=== PATIENT | female | born 1940 | race Caucasian/White ===

== ENCOUNTER 2017-01-20 10:03 | Inpatient (IN) | payer OTHER ==
[~2017-01-20] VITALS: Ht 162.6 cm; Wt 52.6 kg
[2017-01-20] MEDS ORDERED: SODIUM CHLORIDE 0.9% 1000ML 1,000 ML IV SCH (10:26)
--- NOTE | 2017-01-20 10:45 | DIAGNOSTIC IMAGING REPORT ---
HEAD CT NONCONTRAST CT DOSE: 967.47 mGy.cm HISTORY: Mental status change Stroke TECHNIQUE: Multiaxial CT images of the head were performed without the use of intravenous contrast. Comparison: None. Findings: The paranasal sinuses and mastoid air cells are clear. The calvarium and skull base are intact. The ventricles and sulci are within normal limits. There is no mass, hematoma, midline shift, or acute infarct. Impression: No acute intracranial abnormality. Electronically signed by: César Goldman M.D. 01/20/2017 10:44 AM Dictated Date/Time: 01/20/2017 10:41 AM
--- NOTE | 2017-01-20 10:53 | DIAGNOSTIC IMAGING REPORT ---
CHEST ONE VIEW PORTABLE CLINICAL HISTORY: Stroke. Slurred speech. COMPARISON STUDY: Chest radiograph April 05, 2015. FINDINGS: Lung volumes are normal. Lungs are clear. There is no pneumothorax or pleural effusion. Cardiac size is normal. Mediastinal contours are normal. There is no evidence of pulmonary edema. 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 IMPRESSION: No acute cardiopulmonary findings. Electronically signed by: Lalit Philip M.D. 01/20/2017 10:52 AM Dictated Date/Time: 01/20/2017 10:49 AM
[2017-01-20 11:19] LABS: BASO % 0.4 %; BASO ABS # 0.04 K/uL (0-0.2); COMPLETE YES; EOS % 3.8 %; HEMATOCRIT 43.1 % (37-47); IG% 0.2 %; LYMPH % 8.5 %; MEAN CELL VOLUME 88.1 fL (80-100); MEAN CORPUSCULAR HEMOGLOBIN 30.9 pg (25-34); MEAN PLATELET VOLUME 9.2 fL (7.4-10.4); NEUT % 81.1 %; PLATELET COUNT 216 K/uL (130-400); RED BLOOD COUNT 4.89 M/uL (4.2-5.4); WHITE BLOOD COUNT 10.56 K/uL (4.8-10.8)
[2017-01-20] MEDS ORDERED: ALPR-411 PO ×2 (11:19→11:21)
[2017-01-20 11:26] LABS: BLOOD UREA NITROGEN 13 mg/dl (7-18); BUN/CREATININE RATIO 15.4 (10-20); CALCIUM 9.1 mg/dl (8.5-10.1); CARBON DIOXIDE 28 mmol/L (21-32); CHLORIDE 104 mmol/L (98-107); CREATININE 0.87 mg/dl (0.60-1.20); GLUCOSE 110 mg/dl (70-99); POTASSIUM 3.8 mmol/L (3.5-5.1); SODIUM 138 mmol/L (136-145)
[2017-01-20] MEDS ORDERED: SIMV40TA2 PO (11:27)
[2017-01-20 11:28] LABS: PROTHROMBIN TIME (PATIENT) 10.3 SECONDS (9.0-12.0)
[2017-01-20 11:31] LABS: CKMB/CK RATIO 1.7 (0-3.0)
[2017-01-20] MEDS ORDERED: LORAZEPAM 2 MG/ML 1 ML VIAL IV PRN (12:45)
[2017-01-20] MEDS ORDERED: ONDANSETRON INJ 2 MG/ML 2 ML VIAL IV PRN (12:45)
[2017-01-20] MEDS ORDERED: ACETAMINOPHEN 325 MG TAB PO PRN (12:45)
[2017-01-20] MEDS ORDERED: POLYETHYLENE (MIRALAX) 17 GM PACK PO PRN (12:45)
[2017-01-20] MEDS ORDERED: ALUMINUM/MAGNESIUM/SIMETH (MAALOX MAX) 30 ML UDC PO PRN (12:45)
[2017-01-20] MEDS ORDERED: MAGNESIUM HYDROXIDE SUSP 30 ML UDC PO PRN (12:45)
--- NOTE | 2017-01-20 14:06 | History and Physical ---
History & Physical Date & Time of Service: Jan 20, 2017 at 13:47 Chief Complaint: Stroke Symptons, Slurred Speech, Uncontrolled Move Primary Care Physician: Chasity Allen D.O. History of Present Illness Source: patient, family, clinic records This is a 76 year old female with PMH of HTN, HLD, and a long-standing history of choreiform movements - presented with slurred speech and worsening jerking movements of the arms and legs. She has been following with Dr. Zeng, neurology, as an outpatient due to these movements; she had multiple imaging tests and diagnostic tests, including ruling out Lamoure's chorea; as per neurology, this is more of a senile choreiform movement; patient was seen by primary care physician, Dr. Chasity Allen yesterday in the office and had an MRI done yesterday - showing volume loss in the parietal lobes - which is a chronic issue. Patient was seen today and brought in by nephew due to slurring of speech and worsening choreiform movements. When I went to exam the patient, slurring of speech has resolved; but the movements persist. She denies any pain, no other symptoms to note. Past Medical/Surgical History Medical Problems: (1) Cataract Status: Resolved Family History Patient reports no known family medical history. Social History Smoking Status: Never Smoker Multi-Drug Resistant Organisms History of MDRO: No Allergies Coded Allergies: No Known Allergies (Unverified , 01/20/17) Home Medications Scheduled Simvastatin (Zocor), 40 MG PO QPM Scheduled PRN Alprazolam (Xanax), 0.5 MG PO TID PRN for Anxiety Alprazolam (Xanax), 0.25 MG PO TID PRN for Anxiety Review of Systems Constitutional: No chills, No fever Respiratory: No cough, No dyspnea at rest, No dyspnea on exertion, No hemoptysis, No shortness of breath, No sputum, No wheezing Cardiovascular: No chest pain, No edema, No orthopnea, No palpitations Abdomen: No GI bleeding, No constipation, No diarrhea, No nausea, No pain, No vomiting Musculoskeletal: No joint pain, No muscle pain Genitourinary - Female: No dysuria, No hematuria, No urinary frequency, No urinary incontinence, No urinary retention, No urinary urgency Neurologic: + problem reported (jerking involuntary movements), No balance problems, No memory loss, No numbness/tingling, No paralysis, No vertigo, No weakness Psychiatric: + anxiety, No anhedonism, No depression symptoms, No insomnia, No substance abuse Hematologic / Lymphatic: No abnormal bleeding/bruising Integumentary: No itch, No rash Allergic / Immunologic: No environmental allergies, No food allergies, No seasonal allergies Physical Exam Vital Signs Date Time Temp Pulse Resp B/P Pulse Ox O2 Delivery O2 Flow Rate FiO2 01/20/17 13:18 96 18 119/99 95 Room Air 01/20/17 11:48 93 18 134/57 98 Room Air 01/20/17 10:51 89 01/20/17 10:45 91 20 128/43 95 Room Air 01/20/17 10:18 95 Room Air 01/20/17 10:08 37.2 102 20 153/116 97 Room Air General Appearance: + mild distress (+anxious) Head: normocephalic, atraumatic Eyes: normal inspection ENT: hearing grossly normal Neck: supple Respiratory/Chest: chest non-tender, lungs clear, normal breath sounds, no respiratory distress, no accessory muscle use Cardiovascular: regular rate, rhythm, no edema, no murmur Abdomen/GI: normal bowel sounds, non tender, soft Back: normal inspection Extremities/Musculoskelatal: normal inspection, no calf tenderness, normal capillary refill, no pedal edema, normal range of motion Neurologic/Psych: alert, oriented x 3, + pertinent finding (involuntary jerking of both upper and lower extremities - anxious affect) Skin: normal color Lymphatic: no adenopathy Diagnostics Laboratory Results Results Past 24 Hours Test 01/20/17 10:17 01/20/17 10:40 01/20/17 10:51 Range/Units White Blood Count 10.56 4.8-10.8 K/uL Red Blood Count 4.89 4.2-5.4 M/uL Hemoglobin 15.1 12.0-16.0 g/dL Hematocrit 43.1 37-47 % Mean Corpuscular Volume 88.1 80-100 fL Mean Corpuscular Hemoglobin 30.9 25-34 pg Mean Corpuscular Hemoglobin Concent 35.0 32-36 g/dl Platelet Count 216 130-400 K/uL Mean Platelet Volume 9.2 7.4-10.4 fL Neutrophils (%) (Auto) 81.1 % Lymphocytes (%) (Auto) 8.5 % Monocytes (%) (Auto) 6.0 % Eosinophils (%) (Auto) 3.8 % Basophils (%) (Auto) 0.4 % Neutrophils # (Auto) 8.57 1.4-6.5 K/uL Lymphocytes # (Auto) 0.90 1.2-3.4 K/uL Monocytes # (Auto) 0.63 0.11-0.59 K/uL Eosinophils # (Auto) 0.40 0-0.5 K/uL Basophils # (Auto) 0.04 0-0.2 K/uL RDW Standard Deviation 41.0 36.4-46.3 fL RDW Coefficient of Variation 12.8 11.5-14.5 % Immature Granulocyte % (Auto) 0.2 % Immature Granulocyte # (Auto) 0.02 0.00-0.02 K/uL Prothrombin Time 10.3 9.0-12.0 SECONDS Prothromb Time International Ratio 1.0 0.9-1.1 Activated Partial Thromboplast Time 26.1 21.0-31.0 SECONDS Partial Thromboplastin Ratio 1.0 Sodium Level 138 136-145 mmol/L Potassium Level 3.8 3.5-5.1 mmol/L Chloride Level 104 98-107 mmol/L Carbon Dioxide Level 28 21-32 mmol/L Anion Gap 6.0 3-11 mmol/L Blood Urea Nitrogen 13 7-18 mg/dl Creatinine 0.87 0.60-1.20 mg/dl Est Creatinine Clear Calc Drug Dose 46.9 ml/min Estimated GFR () 75.0 Estimated GFR (Non- 64.7 BUN/Creatinine Ratio 15.4 10-20 Random Glucose 110 70-99 mg/dl Calcium Level 9.1 8.5-10.1 mg/dl Total Creatine Kinase 75 26-192 U/L Creatine Kinase MB 1.3 0.5-3.6 ng/ml Creatine Kinase MB Ratio 1.7 0-3.0 Troponin I < 0.015 0-0.045 ng/ml Thyroid Stimulating Hormone (TSH) 0.965 0.300-4.500 uIu/ml Ethyl Alcohol mg/dL < 3.0 0-3 mg/dl Bedside Glucose 90 70-90 mg/dl Diagnostic Radiology HEAD CT NONCONTRAST CT DOSE: 967.47 mGy.cm HISTORY: Mental status change Stroke TECHNIQUE: Multiaxial CT images of the head were performed without the use of intravenous contrast. Comparison: None. Findings: The paranasal sinuses and mastoid air cells are clear. The calvarium and skull base are intact. The ventricles and sulci are within normal limits. There is no mass, hematoma, midline shift, or acute infarct. Impression: No acute intracranial abnormality. CXR normal Normal EKG Impression Assessment and Plan This is a 76 year old female with PMH of HTN, HLD, and a long-standing history of choreiform movements presented with stroke like symptoms Stroke-Like Symptoms as per family members, she had been slurring her speech worsening choreiform movements Head CT negative had an MRI on 01/19 with chronic volume loss at bilateral parietal lobes seen due to slurring of speech, will check MRI/MRA of head/neck again check TSH Ativan PRN consult neurology for further input HTN monitor BP she is now off of triamterene-HCTZ HLD continue statin DVT ppx Lovenox FULL CODE VTE Prophylaxis VTE Risk Assessment Done? Y/N: Yes Risk Level: Moderate
--- NOTE | 2017-01-20 14:30 | DIAGNOSTIC IMAGING REPORT ---
MRI OF THE BRAIN WITHOUT AND WITH IV CONTRAST CLINICAL HISTORY: stroke like symptoms mental status change COMPARISON STUDY: No previous studies for comparison. TECHNIQUE: Utilizing a 1.5 Amanda magnet and dedicated coil, multiplanar, multiecho imaging of the brain was performed pre and postcontrast administration. IV administration of 10 mL of Gadavist contrast was uneventful. FINDINGS: Diffusion-weighted images show no evidence for an acute ischemic insult. Findings of mild generalized cerebellar as well as cerebral atrophy. Moderate chronic small vessel change. No abnormal postcontrast enhancement. Sella and parasellar region as well as internal artery canals appear unremarkable. IMPRESSION: Age-related atrophy and chronic small vessel change. No acute process. Electronically signed by: César Goldman M.D. 01/20/2017 2:29 PM Dictated Date/Time: 01/20/2017 2:25 PM
--- NOTE | 2017-01-20 14:31 | DIAGNOSTIC IMAGING REPORT ---
MR ANGIOGRAM OF THE BRAIN CLINICAL HISTORY: Strokelike symptoms. Slurred speech. COMPARISON STUDY: MRI of the brain performed concurrently on 01/20/2017. TECHNIQUE: 3-D [id number] MR angiography of the intracranial circulation is performed. 3-D tumble views are created and assessed. IV contrast was not administered for this examination. FINDINGS: There is origin of the right posterior cerebral artery. The internal carotid arteries are widely patent bilaterally, as are the anterior and middle cerebral arteries. The vertebrobasilar system and posterior cerebral arteries are widely patent. The right vertebral artery is dominant. There is no aneurysm, high-grade stenosis, or focal vessel cutoff seen throughout the intracranial circulation. The brain parenchyma is normal as visualized noting age-related involutional change. IMPRESSION: Unremarkable MR angiogram of the brain. Electronically signed by: Rickie Rajput M.D. 01/20/2017 2:30 PM Dictated Date/Time: 01/20/2017 2:28 PM
[2017-01-20 14:40] VITALS: BP 113/69; PULSE 98; TEMP 37.4; O2SAT 98; Ht 162.6 cm; Wt 52.6 kg
[2017-01-20] MEDS ORDERED: LORAZEPAM INJ 0.5 MG in SYRINGE 0.75 ML IV PRN (15:15)
[2017-01-20 15:30] VITALS: BP 121/55; PULSE 93; TEMP 37.3; O2SAT 94
--- NOTE | 2017-01-20 17:00 | Neurology Consultation ---
Neurology Consultation Date of Consultation: Jan 20, 2017. Attending Physician: Brian Keane MD Primary Care Physician: Chasity Allen D.O. Reason for Consultation: MS change History of Present Illness Source: patient, family Day is a 76 year old female with PMH of HTN, HLD, history of choreiform movements - presented with slurred speech and worsening jerking movements of the arms and legs which has gotten worse over the past 3 weeks. She is a patient of Dr. Zeng, neurology, genetic testing r/o Gregory's chorea; Dr. 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 According to family she has been well all her life and no real chronic issues. She was recently given Xanax for anxiety. She does drink 1 glass of wine per night which does relax her in the evening. She does not move at night but does get up at night and goes to the couch not to bother her . No history of illness or head trauma. denies CP, SOB, abdominal pain, swallowing issues, N, V, bowel or bladder issues. Social History Smoking Status: Never smoker Alcohol Use: occasionally Allergies Coded Allergies: No Known Allergies (Unverified , 01/20/17) Current Inpatient Medications Current Inpatient Medications Medications (Trade) Dose Ordered Sig/Katia Route Start Time Stop Time Status Last Admin Dose Admin Enoxaparin Sodium 40 mg 40 mg Q24H SC 01/20/17 16:00 02/19/17 15:59 Sodium Chloride (Nss 1000ml) 1,000 ml @ 80 mls/hr [id number] IV 01/20/17 12:39 02/19/17 12:38 Acetaminophen (Tylenol Tab) 650 mg Q4H PRN PO 01/20/17 12:45 02/19/17 12:44 Al Hydrox/Mg Hydrox/Simethicone (Maalox Max Susp) 15 ml Q4H PRN PO 01/20/17 12:45 02/19/17 12:44 Magnesium Hydroxide (Milk Of Magnesia Susp) 30 ml Q12H PRN PO 01/20/17 12:45 02/19/17 12:44 Ondansetron HCl (Zofran Inj) 4 mg Q6H PRN IV 01/20/17 12:45 02/19/17 12:44 Polyethylene (Miralax Powder Packet) 17 gm DAILY PRN PO 01/20/17 12:45 02/19/17 12:44 Simvastatin (Zocor Tab) 40 mg QPM PO 01/20/17 21:00 02/19/17 20:59 Lorazepam 0.5 mg 0.5 mg Q4 PRN IV 01/20/17 12:45 02/19/17 12:44 Lorazepam/Syringe (Ativan Inj/ Syringe) 1 ml @ 1 mls/min Q4H PRN IV 01/20/17 15:15 02/19/17 15:14 Physical Exam Vital Signs (Past 24 Hrs): Date Time Temp Pulse Resp B/P Pulse Ox O2 Delivery O2 Flow Rate FiO2 01/20/17 15:30 37.3 93 18 121/55 94 Room Air 01/20/17 14:40 37.4 98 16 113/69 98 Room Air 01/20/17 13:18 96 18 119/99 95 Room Air 01/20/17 11:48 93 18 134/57 98 Room Air 01/20/17 10:51 89 01/20/17 10:45 91 20 128/43 95 Room Air 01/20/17 10:18 95 Room Air 01/20/17 10:08 37.2 102 20 153/116 97 Room Air Physical Exam: Constitutional: appearance nourished, thin Ears, Nose, Mouth and Throat: mucous membranes moist, no injection and skin normal, eyes normal Cardiovascular: normal S-1 and S-2 and regular rate and rhythm Respiratory: clear to auscultation (CTA) and no rales, rhonchi or wheeze Musculoskeletal: no peripheral edema and good distal pulses Skin: no stigmata of neurocutaneous disease noted and normal and intact Eyes: extraocular muscles intact (EOMI) and pupils equal, round and reactive to light (PERRL) NEUROLOGIC EXAMINATION: Mental status: Alert and interactive Oriented to full date and location Oriented to person Speech fluent with no evidence of aphasia Cranial Nerves smile and eye brow raise symmetric, tongue midline Reflexes: Deep tendon reflexes were symmetrical and graded 2/5. Plantar responses were flexor. Sensory: no deficit to vibration, cool touch, GT proprioception in tact bilaterally Coordination: finger to nose without bi pass Gait/Stance: stands with minimal assistance Motor: continuing chorea movements of arms legs and head, stops with concentration on hand assistant director of financial aid or lifting leg Strength: biceps triceps hand assistant director of financial aid 5/5 bilaterally, hip flex ext plantar flex ext bilaterally 5/5 Laboratory Results Past 24 Hours: 01/20/17 10:17 Red Blood Count 4.89, Mean Corpuscular Volume 88.1, Mean Corpuscular Hemoglobin 30.9, Mean Corpuscular Hemoglobin Concent 35.0, Mean Platelet Volume 9.2, Neutrophils (%) (Auto) 81.1, Lymphocytes (%) (Auto) 8.5, Monocytes (%) (Auto) 6.0, Eosinophils (%) (Auto) 3.8, Basophils (%) (Auto) 0.4, Neutrophils # (Auto) 8.57, Lymphocytes # (Auto) 0.90, Monocytes # (Auto) 0.63, Eosinophils # (Auto) 0.40, Basophils # (Auto) 0.04 01/20/17 10:17 Test 01/20/17 10:17 01/20/17 10:40 01/20/17 10:51 White Blood Count 10.56 K/uL (4.8-10.8) Red Blood Count 4.89 M/uL (4.2-5.4) Hemoglobin 15.1 g/dL (12.0-16.0) Hematocrit 43.1 % (37-47) Mean Corpuscular Volume 88.1 fL (80-100) Mean Corpuscular Hemoglobin 30.9 pg (25-34) Mean Corpuscular Hemoglobin Concent 35.0 g/dl (32-36) Platelet Count 216 K/uL (130-400) Mean Platelet Volume 9.2 fL (7.4-10.4) Neutrophils (%) (Auto) 81.1 % Lymphocytes (%) (Auto) 8.5 % Monocytes (%) (Auto) 6.0 % Eosinophils (%) (Auto) 3.8 % Basophils (%) (Auto) 0.4 % Neutrophils # (Auto) 8.57 K/uL (1.4-6.5) Lymphocytes # (Auto) 0.90 K/uL (1.2-3.4) Monocytes # (Auto) 0.63 K/uL (0.11-0.59) Eosinophils # (Auto) 0.40 K/uL (0-0.5) Basophils # (Auto) 0.04 K/uL (0-0.2) RDW Standard Deviation 41.0 fL (36.4-46.3) RDW Coefficient of Variation 12.8 % (11.5-14.5) Immature Granulocyte % (Auto) 0.2 % Immature Granulocyte # (Auto) 0.02 K/uL (0.00-0.02) Prothrombin Time 10.3 SECONDS (9.0-12.0) Prothromb Time International Ratio 1.0 (0.9-1.1) Activated Partial Thromboplast Time 26.1 SECONDS (21.0-31.0) Partial Thromboplastin Ratio 1.0 Anion Gap 6.0 mmol/L (3-11) Est Creatinine Clear Calc Drug Dose 46.9 ml/min Estimated GFR () 75.0 Estimated GFR (Non- 64.7 BUN/Creatinine Ratio 15.4 (10-20) Calcium Level 9.1 mg/dl (8.5-10.1) Total Creatine Kinase 75 U/L (26-192) Creatine Kinase MB 1.3 ng/ml (0.5-3.6) Creatine Kinase MB Ratio 1.7 (0-3.0) Troponin I < 0.015 ng/ml (0-0.045) Thyroid Stimulating Hormone (TSH) 0.965 uIu/ml (0.300-4.500) Ethyl Alcohol mg/dL < 3.0 mg/dl (0-3) Bedside Glucose 90 mg/dl (70-90) Imaging MRI brain with and without brain- Age-related atrophy and chronic small vessel change. No acute process. MRA brain- Unremarkable MR angiogram of the brain CXR-No acute cardiopulmonary findings Impression 76 year old female with known history of chorea movements Plan 1. gregory chorea was ruled out with genetic testing 2. no acute findings on MRI 3. patients family would like to have her seen at [facility]- paperwork in room-as out patient 4. causes of chorea movements- query systemic lupus, infection, Sydenham's chorea child serrato disease, medications, neuroleptics, age related chorea, metabolic abnormalities 5. according to family patient has been healthy all her life 6. further recommendations to follow I have seen and discussed above patient with Dr Jyoti Oshea Pt seen and examined. Apparently pt had some abnl movement of one arm as a child. No hx of RF or known syndenhams. Pt/family deny prior tics.Genetic testing for [place]'s negative. No neuroleptic use. Gait has declined, family denies any cofnificFamily brought pt in they felt speech was dysarthric and increased L chorea. MRI yesterday and today are unchanged and do not show any diffusion weighted abnl. CT head bl basal ganglia calcification. Exam notable for modest generalized chorea . There is some keira buccal grimacing. No resting tremor or cogwheelin.Sadfsccades are slow, no facial asymmetry, speech mildly dysarthric cw oraobuccal mvmts. gag mildly depressed bl. Strength symm, reflexes mildly brisk nonpathologic. FNF, HS is nondystaxic. Gait is unsteady wide based, almost an exaggerated steppage. Imp chorea. Will check for treatable etiologies. Given wt loss consider paraneoplastic. CT chest, abd pelvis, anti HU cv2/crmp5. CHANG pending, heavy metals, copper level, ceruloplasmin B12, pth, ferritin . Re tx could consider the atypical neuroleptics such as seroquel, tetrabenazine. CONCETTA Oshea MD
--- NOTE | 2017-01-20 17:13 | EMERGENCY ROOM VISIT NOTE ---
History Report prepared by Felecia: Magdalena Bearden Under the Supervision of: Dr. David Vieira M.D. First contact with patient: 10:14 Chief Complaint: STROKE SYMPTOMS Stated Complaint: STROKE SYMPTONS, SLURRED SPEECH, UNCONTROLLED MOVE History of Present Illness The patient is a 76 year old female who presents to the Emergency Room with complaints of slurred speech starting this morning. The patient's family had first contact with her around 8:am and she had slurred speech with trouble speaking. As per son, she could not "get the words out." The patient's family is unsure about the exact time her symptoms started. When her son was feeding her breakfast around 8:45 am, the patient started gasping for air. As per family , her speech has improved but continues to be slightly more slurred than normal. The patient states that she is having intermittent trouble with speech. The patient currently denies flu-like symptoms, headache, or any other complaints. She also denies any alcohol use. She took Xanax today as prescribed. About 3-4 weeks ago, she started having spasms and involuntary bodily movements on the right side and of her head. Parkinson's disease and Bruce's disease have been ruled out. She had an MRI yesterday but that the family has not received the results yet. As per family, her spasms are not any different today. Source of History: patient, family Onset: this morning Position: other (global) Quality: other (slurred speech) Timing: other (improved) Associated Symptoms: No headache Review of Systems See HPI for pertinent positives & negatives. A total of 10 systems reviewed and were otherwise negative. Past Medical & Surgical Medical Problems: (1) Cataract (2) Choreiform movements (3) Stroke-like symptoms Family History Patient reports no known family medical history. Social History Smoking Status: Never Smoker Marital Status: Occupation Status: retired Current/Historical Medications Scheduled Simvastatin (Zocor), 40 MG PO QPM Scheduled PRN Alprazolam (Xanax), 0.5 MG PO TID PRN for Anxiety Alprazolam (Xanax), 0.25 MG PO TID PRN for Anxiety Allergies Coded Allergies: No Known Allergies (Unverified , 01/20/17) Physical Exam Vital Signs Date Time Temp Pulse Resp B/P Pulse Ox O2 Delivery O2 Flow Rate FiO2 01/20/17 14:40 37.4 98 16 113/69 98 Room Air 01/20/17 13:18 96 18 119/99 95 Room Air 01/20/17 11:48 93 18 134/57 98 Room Air 01/20/17 10:51 89 01/20/17 10:45 91 20 128/43 95 Room Air 01/20/17 10:18 95 Room Air 01/20/17 10:08 37.2 102 20 153/116 97 Room Air Physical Exam Constitutional: Vital signs reviewed. Eyes: Pupils are equal round reactive to light. Conjunctiva are noninjected. ENT: Pharynx is clear without erythema or exudate. Mucous membranes are moist. Neck supple without meningeal signs. Respiratory: Clear to auscultation bilaterally. Breath sounds are equal bilaterally. Cardiovascular: Regular rate and rhythm. No rubs or gallops. GI: Soft, nondistended and nontender. Bowel sounds are present. Musculoskeletal: No peripheral edema. No lower extremity tenderness. Integumentary: No cyanosis. Neurological: The patient is awake and alert. Cranial nerves II-XII are intact. Motor is 5 out of 5 all extremities. Sensation is intact to light touch all extremities. No pronator drift. No limb ataxia. Speech is slightly slurred. Spastic movements of the right arm. The patient moves her head back and forth frequently. Psychiatric: Normal affect. Medical Decision & Procedures ER Provider Diagnostic Interpretation: X-ray results as stated below per interpretation by me and the radiologist: CHEST ONE VIEW PORTABLE CLINICAL HISTORY: Stroke. Slurred speech. COMPARISON STUDY: Chest radiograph April 05, 2015. FINDINGS: Lung volumes are normal. Lungs are clear. There is no pneumothorax or pleural effusion. Cardiac size is normal. Mediastinal contours are normal. There is no evidence of pulmonary edema. 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 IMPRESSION: No acute cardiopulmonary findings. Electronically signed by: Lalit Philip M.D. 01/20/2017 10:52 AM Dictated Date/Time: 01/20/2017 10:[address] results as stated below per my review and radiologist interpretation. HEAD CT NONCONTRAST CT DOSE: 967.47 mGy.cm HISTORY: Mental status change Stroke TECHNIQUE: Multiaxial CT images of the head were performed without the use of intravenous contrast. Comparison: None. Findings: The paranasal sinuses and mastoid air cells are clear. The calvarium and skull base are intact. The ventricles and sulci are within normal limits. There is no mass, hematoma, midline shift, or acute infarct. Impression: No acute intracranial abnormality. Electronically signed by: César Goldman M.D. 01/20/2017 10:44 AM Dictated Date/Time: 01/20/2017 10:41 AM Laboratory Results 01/20/17 10:17 Red Blood Count 4.89, Mean Corpuscular Volume 88.1, Mean Corpuscular Hemoglobin 30.9, Mean Corpuscular Hemoglobin Concent 35.0, Mean Platelet Volume 9.2, Neutrophils (%) (Auto) 81.1, Lymphocytes (%) (Auto) 8.5, Monocytes (%) (Auto) 6.0, Eosinophils (%) (Auto) 3.8, Basophils (%) (Auto) 0.4, Neutrophils # (Auto) 8.57, Lymphocytes # (Auto) 0.90, Monocytes # (Auto) 0.63, Eosinophils # (Auto) 0.40, Basophils # (Auto) 0.04 01/20/17 10:17 Test 01/20/17 10:17 01/20/17 10:40 01/20/17 10:51 White Blood Count 10.56 K/uL (4.8-10.8) Red Blood Count 4.89 M/uL (4.2-5.4) Hemoglobin 15.1 g/dL (12.0-16.0) Hematocrit 43.1 % (37-47) Mean Corpuscular Volume 88.1 fL (80-100) Mean Corpuscular Hemoglobin 30.9 pg (25-34) Mean Corpuscular Hemoglobin Concent 35.0 g/dl (32-36) Platelet Count 216 K/uL (130-400) Mean Platelet Volume 9.2 fL (7.4-10.4) Neutrophils (%) (Auto) 81.1 % Lymphocytes (%) (Auto) 8.5 % Monocytes (%) (Auto) 6.0 % Eosinophils (%) (Auto) 3.8 % Basophils (%) (Auto) 0.4 % Neutrophils # (Auto) 8.57 K/uL (1.4-6.5) Lymphocytes # (Auto) 0.90 K/uL (1.2-3.4) Monocytes # (Auto) 0.63 K/uL (0.11-0.59) Eosinophils # (Auto) 0.40 K/uL (0-0.5) Basophils # (Auto) 0.04 K/uL (0-0.2) RDW Standard Deviation 41.0 fL (36.4-46.3) RDW Coefficient of Variation 12.8 % (11.5-14.5) Immature Granulocyte % (Auto) 0.2 % Immature Granulocyte # (Auto) 0.02 K/uL (0.00-0.02) Prothrombin Time 10.3 SECONDS (9.0-12.0) Prothromb Time International Ratio 1.0 (0.9-1.1) Activated Partial Thromboplast Time 26.1 SECONDS (21.0-31.0) Partial Thromboplastin Ratio 1.0 Anion Gap 6.0 mmol/L (3-11) Est Creatinine Clear Calc Drug Dose 46.9 ml/min Estimated GFR () 75.0 Estimated GFR (Non- 64.7 BUN/Creatinine Ratio 15.4 (10-20) Calcium Level 9.1 mg/dl (8.5-10.1) Total Creatine Kinase 75 U/L (26-192) Creatine Kinase MB 1.3 ng/ml (0.5-3.6) Creatine Kinase MB Ratio 1.7 (0-3.0) Troponin I < 0.015 ng/ml (0-0.045) Thyroid Stimulating Hormone (TSH) 0.965 uIu/ml (0.300-4.500) Ethyl Alcohol mg/dL < 3.0 mg/dl (0-3) Bedside Glucose 90 mg/dl (70-90) Laboratory results as reviewed by me. Medications Administered Medications (Trade) Dose Ordered Sig/Katia Route Start Time Stop Time Status Last Admin Dose Admin Sodium Chloride (Nss 1000ml) 1,000 ml @ 50 mls/hr Q20H IV 01/20/17 10:26 01/20/17 15:12 DC 01/20/17 10:56 50 MLS/HR ECG Indication: other (Stroke-like symptoms) Rate (beats per minute): 91 Rhythm: normal sinus Findings: no acute ischemic change, no ectopy, other (Limited interpretation due to baseline artifact) ED Course 1014: The patient was evaluated in room A01. A complete history and physical exam was performed. Patient possibly woke up symptoms and time of onset is unclear. Patient is not a tPA candidate. 1026: Sodium Chloride 1000 ml @ 50 mls/hr IV 1100: I discussed the CT results with the patient and her son. Her son states that the patient's speech seems clearer now over the past 5-10 minutes. 1110: I discussed the patient's case with Dr. Zeng, neurologist with [facility]. He recommended hospitalizing the patient for further work up and she will likely need a repeat MRI. 1204: On reevaluation, the patient is resting comfortably. I discussed the results and findings with the patient and her family. They verbalized agreement of the treatment plan. [facility] The patient will be evaluated for further management and care. Medical Decision This is a 76-year-old female who presents with trouble with her speech. Differential diagnosis includes TIA, CVA, intracranial mass, intracranial hemorrhage, metabolic derangement. I did perform a limited focused review of portions of the patient's old chart on the electronic medical record. The patient has had no recent pertinent visits to this hospital. According to the [facility] system, she had an MRI on January 19 of the brain which showed unchanged susceptibility artifact in the bilateral basal ganglia especially in the putamen region and unchanged diffuse cerebral volume loss predominantly in the bilateral parietal lobe. She was seen by Dr. Zeng of neurology in June 2016. She was diagnosed with "senile" chorea. I did evaluate the patient as noted above. The patient is presenting with slurred speech. The onset of the slurred speech is unclear. She is unaware of it and her family states that she may have woken up with the symptoms. She also has involuntary movements of the right side as well as her head which has been worked up by her physician and neurologist. IV access was established. The patient was placed on a continuous radiation monitor. I did order and personally review the patient's 12-lead EKG and chest x-ray as described above. I did order and review the patient's blood work as noted in the electronic medical record. Her blood work is unremarkable. I did order a CT of the head. I did review the images myself as well as the radiology report as described above. There is no evidence of CVA. I did discuss the case with Dr. Zeng who has seen the patient in the past. He recommended hospitalization for further workup including MRI. I did discuss this with the patient and her family. Her symptoms seem to be improving according to her son although still persistent. I did discuss the case with the hospitalist and dependency case manager. Consults Time Called: 1106 Consulting Physician: Dr. Zeng, neurologist with [facility] Returned Call: 1110 I discussed the patient's case with Dr. Zeng, neurologist with [facility]. He recommended hospitalizing the patient for further work up and she will likely need a repeat MRI. Additional Consults: Time Called: 1156 Consulted Physician[facility] Returned Call: 1204 Additional Comments: [facility]. Impression Primary Impression: Slurred speech Additional Impression: Involuntary movements Scribe Attestation The scribe's documentation has been prepared under my direct and personally reviewed by me in its entirety. I confirm that the note above accurately reflects all work, treatment, procedures, and medical decision making performed by me. Departure Information Dispostion Being Evaluated By Hospitalist Referrals Chasity Allen D.O. (PCP) Patient Instructions My [facility] Problem Qualifiers
[2017-01-20] MEDS: ENOXAPARIN 40 MG/0.4 ML SYR SC SCH (17:34)
[2017-01-20] MEDS: SODIUM CHLORIDE 0.9% 1000ML 1,000 ML IV SCH (17:34)
[2017-01-20 19:50] VITALS: BP 98/59; PULSE 87; TEMP 36.5; O2SAT 93
[2017-01-20] MEDS: SIMVASTATIN 40 MG TAB PO SCH (21:28)
[2017-01-20 22:52] LABS: BENZODIAZEPINE, URINE POS (NEG); COCAINE,URINE NEG (NEG); PHENCYCLIDINE, URINE NEG (NEG)
[2017-01-20 23:52] VITALS: BP 110/66; PULSE 80; TEMP 37; O2SAT 97
[2017-01-21 03:15] VITALS: BP 107/64; PULSE 87; TEMP 37; O2SAT 96
[2017-01-21 06:39] LABS: MEAN CELL VOLUME 88.8 fL (80-100); MEAN CORPUSCULAR HGB CONC 34.9 g/dl (32-36); MEAN PLATELET VOLUME 9.4 fL (7.4-10.4); PLATELET COUNT 177 K/uL (130-400); RED BLOOD COUNT 4.39 M/uL (4.2-5.4); WHITE BLOOD COUNT 5.37 K/uL (4.8-10.8)
[2017-01-21 07:11] LABS: ALT/SGPT 20 U/L (12-78); AST/SGOT 16 U/L (15-37); BLOOD UREA NITROGEN 10 mg/dl (7-18); BUN/CREATININE RATIO 13.7 (10-20); CALCIUM 8.3 mg/dl (8.5-10.1); CARBON DIOXIDE 24 mmol/L (21-32); CHLORIDE 108 mmol/L (98-107); GLUCOSE 111 mg/dl (70-99); POTASSIUM 3.6 mmol/L (3.5-5.1); SODIUM 141 mmol/L (136-145)
[2017-01-21 07:16] LABS: ALKALINE PHOSPHATASE 71 U/L (45-117); FERRITIN 298.8 ng/ml (8.0-388.0)
[2017-01-21 07:50] VITALS: BP 118/72; PULSE 82; TEMP 36.7; O2SAT 99
--- NOTE | 2017-01-21 08:32 | DIAGNOSTIC IMAGING REPORT ---
MR ANGIOGRAM OF THE NECK COMBO CLINICAL HISTORY: Change in mental status. Slurred speech. COMPARISON STUDY: No priors. TECHNIQUE: Axial 3-D kgyy-[id number] MR angiography of the neck is performed. Subsequently, following the IV administration of 20 cc of Magnevist coronal MR angiogram of the neck was performed to corroborate the findings. 3-D reformats are created and assessed. All measurements were calculated based on NASCET criteria. The examination is degraded by motion artifact. FINDINGS: Visualized portions of the thoracic aorta are normal in caliber. The right common carotid artery is widely patent, as are the right internal and external carotid arteries. The left common carotid artery is widely patent, as are the left internal and external carotid arteries. The right subclavian artery is widely patent. The left subclavian artery was not imaged. The vertebral arteries are widely patent and appear codominant. The partially imaged intracranial vessels appear patent. The jugular veins are patent. IMPRESSION: Unremarkable MR angiogram of the neck. Electronically signed by: Rickie Rajput M.D. 01/20/2017 3:17 PM Dictated Date/Time: 01/20/2017 3:14 PM
--- NOTE | 2017-01-21 09:10 | Progress Note ---
Internal Med Progress Note Date of Service: Jan 21, 2017. Provider Documentation: SUBJECTIVE: Patient is seen and examined at bedside. Family at bedside. States speech is back to her baseline. Denies any chest pain, SOB. + Chorea movements. No memory issues. OBJECTIVE: Vital Signs-as noted below General Appearance: + mild distress +anxious Head: normocephalic, atraumatic Eyes: normal inspection ENT: hearing grossly normal Neck: supple Respiratory/Chest: chest non-tender, lungs clear, normal breath sounds, no accessory muscle use Cardiovascular: S1, S2, regular rate, rhythm, no edema, no murmur Abdomen/GI: normal bowel sounds, non tender, soft Back: normal inspection Extremities/Musculoskelatal: normal inspection, no calf tenderness, normal capillary refill, no pedal edema Neurologic/Psych: alert, oriented x 3, + involuntary jerking of both upper and lower extremities Skin: normal color Lymphatic: no adenopathy Lab data as noted below. ASSESSMENT & PLAN: Chorea: Mont[place]m chorea was ruled out with genetic testing as per family members, she had been slurring her speech worsening choreiform movements, family denies prior tics Head CT/MRI: no acute pathology Head MRI on 01/19 with chronic volume loss at bilateral parietal lobes seen MRI/MRA of head/neck: wnl TSH, PTH, Ferritin:wnl Continue Ativan PRN Appreciate neurology input CT head bl basal ganglia calcification Toxicology screen: +Benzo (On Xanax at home) To rule out paraneoplastic given history of weight loss (5-6 pounds per patient) Follow up CT chest, abd pelvis, anti HU cv2/crmp5, CHANG, heavy metals, copper level, ceruloplasmin, B12, Lyme work up:pending Atypical neuroleptics to consider to therapy per Neurology Family states speech disturbance with Ativan use at home Family planning to visit [facility] for further evaluation HTN Stable Patient is now off of triamterene-HCTZ HLD continue statin DVT ppx Lovenox Code status: Full Code Disposition: Work up pending Continue to monitor Vital Signs: Date Time Temp Pulse Resp B/P Pulse Ox O2 Delivery O2 Flow Rate FiO2 01/21/17 07:50 36.7 82 18 118/72 99 01/21/17 04:00 Room Air 01/21/17 03:15 37.0 87 17 107/64 96 Room Air 01/21/17 00:00 Room Air 01/20/17 23:52 37.0 80 17 110/66 97 Room Air 01/20/17 20:00 Room Air 01/20/17 19:50 36.5 87 18 98/59 93 Room Air 01/20/17 16:00 Room Air 01/20/17 15:30 37.3 93 18 121/55 94 Room Air 01/20/17 14:40 37.4 98 16 113/69 98 Room Air 01/20/17 13:18 96 18 119/99 95 Room Air 01/20/17 11:48 93 18 134/57 98 Room Air 01/20/17 10:51 89 01/20/17 10:45 91 20 128/43 95 Room Air 01/20/17 10:18 95 Room Air 01/20/17 10:08 37.2 102 20 153/116 97 Room Air Lab Results: Results Past 24 Hours Test 01/20/17 10:17 01/20/17 10:40 01/20/17 10:51 01/20/17 22:00 Range/Units White Blood Count 10.56 4.8-10.8 K/uL Red Blood Count 4.89 4.2-5.4 M/uL Hemoglobin 15.1 12.0-16.0 g/dL Hematocrit 43.1 37-47 % Mean Corpuscular Volume 88.1 80-100 fL Mean Corpuscular Hemoglobin 30.9 25-34 pg Mean Corpuscular Hemoglobin Concent 35.0 32-36 g/dl Platelet Count 216 130-400 K/uL Mean Platelet Volume 9.2 7.4-10.4 fL Neutrophils (%) (Auto) 81.1 % Lymphocytes (%) (Auto) 8.5 % Monocytes (%) (Auto) 6.0 % Eosinophils (%) (Auto) 3.8 % Basophils (%) (Auto) 0.4 % Neutrophils # (Auto) 8.57 1.4-6.5 K/uL Lymphocytes # (Auto) 0.90 1.2-3.4 K/uL Monocytes # (Auto) 0.63 0.11-0.59 K/uL Eosinophils # (Auto) 0.40 0-0.5 K/uL Basophils # (Auto) 0.04 0-0.2 K/uL RDW Standard Deviation 41.0 36.4-46.3 fL RDW Coefficient of Variation 12.8 11.5-14.5 % Immature Granulocyte % (Auto) 0.2 % Immature Granulocyte # (Auto) 0.02 0.00-0.02 K/uL Prothrombin Time 10.3 9.0-12.0 SECONDS Prothromb Time International Ratio 1.0 0.9-1.1 Activated Partial Thromboplast Time 26.1 21.0-31.0 SECONDS Partial Thromboplastin Ratio 1.0 Sodium Level 138 136-145 mmol/L Potassium Level 3.8 3.5-5.1 mmol/L Chloride Level 104 98-107 mmol/L Carbon Dioxide Level 28 21-32 mmol/L Anion Gap 6.0 3-11 mmol/L Blood Urea Nitrogen 13 7-18 mg/dl Creatinine 0.87 0.60-1.20 mg/dl Est Creatinine Clear Calc Drug Dose 46.9 ml/min Estimated GFR () 75.0 Estimated GFR (Non- 64.7 BUN/Creatinine Ratio 15.4 10-20 Random Glucose 110 70-99 mg/dl Calcium Level 9.1 8.5-10.1 mg/dl Total Creatine Kinase 75 26-192 U/L Creatine Kinase MB 1.3 0.5-3.6 ng/ml Creatine Kinase MB Ratio 1.7 0-3.0 Troponin I < 0.015 0-0.045 ng/ml Thyroid Stimulating Hormone (TSH) 0.965 0.300-4.500 uIu/ml Ethyl Alcohol mg/dL < 3.0 0-3 mg/dl Bedside Glucose 90 70-90 mg/dl Urine Opiates Screen NEG NEG Urine Methadone, Qualitative NEG NEG Urine Barbiturates NEG NEG Urine Phencyclidine (PCP) Level NEG NEG Ur Amphetamine/Methamphetamine NEG NEG MDMA (Ecstasy) Screen NEG NEG Urine Benzodiazepines Screen POS NEG Urine Cocaine Metabolite NEG NEG Urine Marijuana (THC) NEG NEG Test 01/21/17 04:44 01/21/17 06:19 Range/Units White Blood Count 5.37 4.8-10.8 K/uL Red Blood Count 4.39 4.2-5.4 M/uL Hemoglobin 13.6 12.0-16.0 g/dL Hematocrit 39.0 37-47 % Mean Corpuscular Volume 88.8 80-100 fL Mean Corpuscular Hemoglobin 31.0 25-34 pg Mean Corpuscular Hemoglobin Concent 34.9 32-36 g/dl RDW Standard Deviation 40.5 36.4-46.3 fL RDW Coefficient of Variation 12.6 11.5-14.5 % Platelet Count 177 130-400 K/uL Mean Platelet Volume 9.4 7.4-10.4 fL Sodium Level 141 136-145 mmol/L Potassium Level 3.6 3.5-5.1 mmol/L Chloride Level 108 98-107 mmol/L Carbon Dioxide Level 24 21-32 mmol/L Anion Gap 9.0 3-11 mmol/L Blood Urea Nitrogen 10 7-18 mg/dl Creatinine 0.70 0.60-1.20 mg/dl Est Creatinine Clear Calc Drug Dose 56.6 ml/min Estimated GFR () 97.5 Estimated GFR (Non- 84.2 BUN/Creatinine Ratio 13.7 10-20 Random Glucose 111 70-99 mg/dl Calcium Level 8.3 8.5-10.1 mg/dl Magnesium Level 2.0 1.8-2.4 mg/dl Ferritin 298.8 8.0-388.0 ng/ml Total Bilirubin 0.5 0.2-1 mg/dl Direct Bilirubin < 0.1 0-0.2 mg/dl Aspartate Amino Transf (AST/SGOT) 16 15-37 U/L Alanine Aminotransferase (ALT/SGPT) 20 12-78 U/L Alkaline Phosphatase 71 45-117 U/L Total Protein 7.0 6.4-8.2 gm/dl Albumin 3.4 3.4-5.0 gm/dl Parathyroid Hormone (Intact) 60.3 11.1-79.5 pg/mL
[2017-01-21] MEDS ORDERED: OPTIRAY 320 IV PRN (11:00)
--- NOTE | 2017-01-21 11:08 | DIAGNOSTIC IMAGING REPORT ---
CT SCAN OF THE ABDOMEN AND PELVIS WITH IV CONTRAST CLINICAL HISTORY: Weight loss. Chorea. COMPARISON STUDY: No priors. TECHNIQUE: Following the IV administration of 119 cc of Optiray 320, CT scan of the abdomen and pelvis is performed from the lung bases to the proximal femora. Images are reviewed in the axial, sagittal, and coronal planes. IV contrast was administered without complication. Automated dose control exposure was utilized. The examination is degraded by streak artifact from the patient's arms which could not be elevated above the abdomen. The Examination is also degraded by motion artifact. CT DOSE: 533.76 mGy.cm FINDINGS: Lung bases: The heart is normal in size and without pericardial effusion. Evaluation of the lung bases is degraded by respiratory motion artifact. Dependent atelectasis is observed. No airspace consolidation or pleural effusion is seen. There is a small hiatal hernia. Liver: Evaluation of the liver is degraded by streak artifact. The contrast-enhanced liver is normal in size, contour, and attenuation. There is no intrahepatic biliary ductal dilatation. The hepatic veins and portal veins are patent. Gallbladder: Unremarkable. Spleen: Normal in size and attenuation. There are scattered calcified splenic granulomas. Pancreas: Moderately atrophic and grossly unremarkable. Adrenal glands: Unremarkable. Kidneys: The contrast enhanced kidneys demonstrate cortical atrophy and are without hydronephrosis. The kidneys enhance symmetrically. Abdominal vasculature: The abdominal aorta is normal in course and caliber noting mild to moderate atherosclerotic calcification. Bowel: The small bowel and colon are normal in course and caliber. There is mild colonic fecal retention. Scattered colonic diverticula are noted. The appendix is well-visualized and normal. Peritoneum: There is no intraperitoneal free air or abdominal ascites. Lymphadenopathy: None. Pelvic viscera: The bladder, uterus, and adnexa are normal as visualized. Skeletal structures: The skeletal structures are osteopenic. There is mild lumbosacral spondylosis. No lytic or blastic lesions are seen. IMPRESSION: 1. Motion and streak artifact degraded examination. 2. There are no acute infectious or inflammatory findings in the abdomen or pelvis. See above. Electronically signed by: Rickie Rajput M.D. 01/21/2017 11:07 AM Dictated Date/Time: 01/21/2017 11:01 AM
--- NOTE | 2017-01-21 11:19 | DIAGNOSTIC IMAGING REPORT ---
CT OF THE CHEST WITH IV CONTRAST CLINICAL HISTORY: Unexplained weight loss, chorea, possible paraneoplastic syndrome. COMPARISON STUDY: No previous studies for comparison. TECHNIQUE: Following the IV administration of 119 mL of Optiray-320, CT of the thorax was performed from the thoracic inlet to the lung bases. Images are reviewed in the axial, sagittal, and coronal planes. IV contrast was administered without complication. CT DOSE: FINDINGS: Thyroid: Imaged portions of the thyroid gland are normal in appearance. Thoracic aorta: The thoracic aorta is normal in course and caliber, noting standard 3-vessel arch anatomy. No aneurysm or dissection is seen. Pulmonary vasculature: The pulmonary trunk is normal in caliber. There are no central filling defects identified to suggest pulmonary embolus. Note that this examination was not protocoled for the evaluation of pulmonary emboli. HEART: The heart is mildly enlarged. Lungs and pleural spaces: There are dependent atelectatic changes. There is no lobar consolidation. Evaluation is limited due to respiratory motion artifact. There is a calcified right upper lobe granuloma. There is a noncalcified 7 x 5 mm right middle lobe pulmonary nodule as visualized in image #[id number]. There is also a 4 mm perifissural right middle lobe pulmonary nodule as visualized in image #[id number]. Mediastinum: There is no pathologic mediastinal lymphadenopathy. There is borderline esophageal wall thickening. Leigha: Hilar lymph nodes are the upper limits of normal in size Axilla: There is no pathologic axillary lymphadenopathy Upper abdomen: Unremarkable Skeletal structures: There are no lytic or blastic osseous lesions. IMPRESSION: 1. 7 x 5 mm right middle lobe pulmonary nodule. Follow-up per Fleischner criteria is recommended 2. Borderline esophageal wall thickening Please refer to below summary of Fleischner criteria recommendations for follow-up of incidental CT nodules (Gus Bloom, Guidelines for management of small pulmonary nodules detected on CT scans: A statement from the Fleischner Society, Radiology 237: [phone].) Low Risk Patient: Minimal or no smoking or other known risk factors for malignancy <=4 mm: No follow-up needed. >4-6 mm: Initial follow-up CT at 12 months; if unchanged, no further follow-up. >6-8 mm: Initial follow-up CT at 6-12 months then at 18-24 months if no change. >8 mm: Follow-up CT at \R\3, 9, 24 months, or PET and/or biopsy. High Risk Patient: History of smoking or other known risk factors <=4 mm: Follow-up at 12 months; if unchanged, no further follow-up. >4-6 mm: Initial follow-up CT at 6-12 months then at 18-24 months if no change. >6-8 mm: Initial follow-up CT at 3-6 months then at 9-12 and 24 months if no change. >8 mm: Same as low risk patient. Note: Nodule size measured as average of length and width. Ground glass or partly solid nodules may require longer follow-up to exclude indolent adenocarcinoma. Electronically signed by: Nazario Trejo M.D. 01/21/2017 11:18 AM Dictated Date/Time: 01/21/2017 11:11 AM
[2017-01-21 11:53] VITALS: BP 108/59; PULSE 80; TEMP 36.8; O2SAT 98
[2017-01-21 12:09] LABS: LYME DISEASE AB IGG NEG (NEG); LYME DISEASE AB IGM NEG (NEG)
[2017-01-21] MEDS: ENOXAPARIN 40 MG/0.4 ML SYR SC SCH (15:30)
[2017-01-21 15:42] VITALS: BP 115/74; PULSE 71; TEMP 36.5; O2SAT 96
--- NOTE | 2017-01-21 16:05 | Neurology Progress Notes ---
Neurology Progress Note Date of Service Jan 21, 2017. Matheus Bernstein is a 76 year old female with PMH of HTN, HLD, history of choreiform movements - presented with slurred speech and worsening jerking movements of the arms and legs which has gotten worse over the past 3 weeks. She is a patient of Dr. Zeng, neurology, genetic testing r/o Bruce's chorea; Dr. 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 According to family she has been well all her life and no real chronic issues. She was recently given Xanax for anxiety. She does drink 1 glass of wine per night which does relax her in the evening. She does not move at night but does get up at night and goes to the couch not to bother her . No history of illness or head trauma. denies CP, SOB, abdominal pain, swallowing issues, N, V, bowel or bladder issues. Today her family is not in the room. Her labs are pending and she is doing about the same. She gets up while examiner is in room and goes to the bathroom independently. no difficulty swallowing, CP, SOB, abdominal pain, weakness, numbness tingling Objective Date Time Temp Pulse Resp B/P Pulse Ox O2 Delivery O2 Flow Rate FiO2 01/21/17 15:42 36.5 71 18 115/74 96 01/21/17 12:00 Room Air 01/21/17 11:53 36.8 80 16 108/59 98 01/21/17 08:00 Room Air 01/21/17 07:50 36.7 82 18 118/72 99 01/21/17 04:00 Room Air 01/21/17 03:15 37.0 87 17 107/64 96 Room Air 01/21/17 00:00 Room Air 01/20/17 23:52 37.0 80 17 110/66 97 Room Air 01/20/17 20:00 Room Air 01/20/17 19:50 36.5 87 18 98/59 93 Room Air 01/20/17 16:00 Room Air Last 24 Hours Test 01/20/17 22:00 01/21/17 06:19 Urine Opiates Screen NEG Urine Methadone, Qualitative NEG Urine Barbiturates NEG Urine Phencyclidine (PCP) Level NEG Ur Amphetamine/Methamphetamine NEG MDMA (Ecstasy) Screen NEG Urine Benzodiazepines Screen POS Urine Cocaine Metabolite NEG Urine Marijuana (THC) NEG White Blood Count 5.37 K/uL Red Blood Count 4.39 M/uL Hemoglobin 13.6 g/dL Hematocrit 39.0 % Mean Corpuscular Volume 88.8 fL Mean Corpuscular Hemoglobin 31.0 pg Mean Corpuscular Hemoglobin Concent 34.9 g/dl RDW Standard Deviation 40.5 fL RDW Coefficient of Variation 12.6 % Platelet Count 177 K/uL Mean Platelet Volume 9.4 fL Sodium Level 141 mmol/L Potassium Level 3.6 mmol/L Chloride Level 108 mmol/L Carbon Dioxide Level 24 mmol/L Anion Gap 9.0 mmol/L Blood Urea Nitrogen 10 mg/dl Creatinine 0.70 mg/dl Est Creatinine Clear Calc Drug Dose 56.6 ml/min Estimated GFR () 97.5 Estimated GFR (Non- 84.2 BUN/Creatinine Ratio 13.7 Random Glucose 111 mg/dl Calcium Level 8.3 mg/dl Magnesium Level 2.0 mg/dl Ferritin 298.8 ng/ml Total Bilirubin 0.5 mg/dl Direct Bilirubin < 0.1 mg/dl Aspartate Amino Transf (AST/SGOT) 16 U/L Alanine Aminotransferase (ALT/SGPT) 20 U/L Alkaline Phosphatase 71 U/L Total Protein 7.0 gm/dl Albumin 3.4 gm/dl Vitamin B12 Level 430 pg/mL Parathyroid Hormone (Intact) 60.3 pg/mL Lyme Disease IgG Antibody NEG Lyme Disease IgM Antibody NEG Imaging: C/A/P- Skeletal structures: The skeletal structures are osteopenic. There is mild lumbosacral spondylosis. No lytic or blastic lesions are seen. Exam: Physical Exam: Constitutional: appearance thin pale, continued chorea movement, UE/LE and tongue rolling Ears, Nose, Mouth and Throat: mucous membranes moist, no injection and skin normal, eyes normal Cardiovascular: normal S-1 and S-2 and regular rate and rhythm Respiratory: clear to auscultation (CTA) and no rales, rhonchi or wheeze Musculoskeletal: no peripheral edema and good distal pulses Skin: no stigmata of neurocutaneous disease noted and normal and intact Eyes: extraocular muscles intact (EOMI) and pupils equal, round and reactive to light (PERRL) NEUROLOGIC EXAMINATION: Mental status: Alert and interactive Oriented to full date and location Oriented to person Speech fluent with no evidence of aphasia Cranial Nerves smile, eye brow raise symmetric, tongue midline Reflexes: Deep tendon reflexes were symmetrical and graded 2/5. Plantar responses were flexor. Sensory: cool or light touch Coordination: finger to nose no bi pass Gait/Stance: Posture normal. Gait normal: with steady with wide stance and exaggerated stepping mainly with left leg tandem gait. Motor: Negative for pronator drift of out stretched arms with eyes closed. 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 bilaterally 5/5, hip flex 5/5 bilaterally Current Inpatient Medications Medications (Trade) Dose Ordered Sig/Katia Route Start Time Stop Time Status Last Admin Dose Admin Enoxaparin Sodium 40 mg 40 mg Q24H SC 01/20/17 16:00 02/19/17 15:59 01/21/17 15:30 40 MG Sodium Chloride (Nss 1000ml) 1,000 ml @ 80 mls/hr [id number] IV 01/20/17 12:39 02/19/17 12:38 01/20/17 17:34 80 MLS/HR Acetaminophen (Tylenol Tab) 650 mg Q4H PRN PO 01/20/17 12:45 02/19/17 12:44 01/20/17 17:42 650 MG Al Hydrox/Mg Hydrox/Simethicone (Maalox Max Susp) 15 ml Q4H PRN PO 01/20/17 12:45 02/19/17 12:44 Magnesium Hydroxide (Milk Of Magnesia Susp) 30 ml Q12H PRN PO 01/20/17 12:45 02/19/17 12:44 Ondansetron HCl (Zofran Inj) 4 mg Q6H PRN IV 01/20/17 12:45 02/19/17 12:44 01/21/17 10:24 4 MG Polyethylene (Miralax Powder Packet) 17 gm DAILY PRN PO 01/20/17 12:45 02/19/17 12:44 Simvastatin (Zocor Tab) 40 mg QPM PO 01/20/17 21:00 02/19/17 20:59 01/20/17 21:28 40 MG Lorazepam 0.5 mg 0.5 mg Q4 PRN IV 01/20/17 12:45 02/19/17 12:44 Lorazepam/Syringe (Ativan Inj/ Syringe) 1 ml @ 1 mls/min Q4H PRN IV 01/20/17 15:15 02/19/17 15:14 Ioversol (Optiray 320) 125 ml UD PRN IV 01/21/17 11:00 01/25/17 10:59 Impression 76 year old female with known history of chorea movements Plan 1. [place] chorea was ruled out with genetic testing 2. no acute findings on MRI 3. patients family would like to have her seen at [facility]- paperwork in room-as out patient 4. causes of chorea movements- query systemic lupus, infection, Sydenham's chorea child serrato disease, medications, neuroleptics, age related chorea, metabolic abnormalities 5. according to family patient has been healthy all her life 6. C/A/P with no acute findings or lesions 7. labs still pending 8. ok from neurology point of view to discharge and follow up in 3-4 weeks after labs are resulted will help facilitate appointment with [facility]. 9. cancel follow with doctor Zeng this Thursday no needed at this time I have seen and discussed above patient with Dr Jyoti Oshea, neurology Pt seen and examined, discussed with son, daughter by phone. Of interest I note that pt son has frequent blinking. He indicates that that has been noted by others but that he "does not have Tourettes." CT chest 7x5mm pulm nodule, borderline thickening of esophageal wall . Defer to hospitalist regarding further eval CHANG neg, ACLA heavy metal, copper, ceruloplasmin pend Anti Hu, CV2 as outpt. Discussed tx with atypical phenothiazine, tetrabenazine. Pt declines at present Interesting that pt son has facial tic. Speech eval to assess swallow, PT to assess for assistive device, will likely need outpt PT. Pt should see Dr Zeng after all labs back. Please cancel this Thursday's appt with him CONCETTA Oshea MD
[2017-01-21 19:48] VITALS: BP 115/74; PULSE 71; TEMP 36.5; O2SAT 96
[2017-01-21 19:49] VITALS: BP 105/59; PULSE 85; TEMP 37.4; O2SAT 97
[2017-01-21] MEDS: SIMVASTATIN 40 MG TAB PO SCH (20:25)
[2017-01-21] MEDS: SODIUM CHLORIDE 0.9% 1000ML 1,000 ML IV SCH (20:35)
[2017-01-21] MEDS ORDERED: NURSING VERBAL MED ORDER ONE (20:45)
[2017-01-22] VITALS (8 sets, daily range): BP systolic 94–145; BP diastolic 57–73; PULSE 75–81; TEMP 36.9–37.2; O2SAT 92–97
--- NOTE | 2017-01-22 06:57 | DIAGNOSTIC IMAGING REPORT ---
CHEST ONE VIEW PORTABLE CLINICAL HISTORY: cough dyspnea COMPARISON STUDY: 01/20/2017 FINDINGS: The bones soft tissues and hemidiaphragms are normal. The cardiomediastinal silhouette is normal. The lungs are clear. The pulmonary vasculature is normal. IMPRESSION: Negative chest. Electronically signed by: César Goldman M.D. 01/22/2017 6:56 AM Dictated Date/Time: 01/22/2017 6:54 AM
[2017-01-22] MEDS ORDERED: OSEL75CA12 PO (15:55)
[2017-01-22] MEDS ORDERED: OSELTAMIVIR PHOSPHATE 75 MG CAP PO ONE (16:00)
--- NOTE | 2017-01-22 16:06 | Discharge Instructions ---
Discharge Instructions Admission Reason for Admission: Choreiform Movements, Stroke-Like Symptoms Discharge Discharge Diagnosis / Problem: CHOREIFORM MOVEMENTS Discharge Goals Goal(s): Diagnostic testing, Therapeutic intervention Activity Recommendations Activity Limitations: as noted below (NO HEAVY EXERTION UNTIL RE=EVALUATED BY PRIMARY CARE PHYSICIAN ON FOLLOW UP) . Instructions / Follow-Up Instructions / Follow-Up PLEASE CALL PRIMARY CARE PHYSICIAN OR RETURN TO ER IMMEDIATELY IF WITH PERSISTENT HIGH GRADE FEVER, NAUSEA/VOMITING, WEAKNESS, COUGH, SHORTNESS OF BREATH. ENSURE ADEQUATE DAILY FLUID INTAKE. AVOID GOING TO PUBLIC PLACES UNTIL FINISHED WITH TAMIFLU COURSE. FOLLOW UP WITH DR. ALVARENGA (ASSOCIATE OF DR. CRUZ) ON Thursday01/27/17 AT 10: [address] FOLLOW UP [address] PYLE SCHEDULED. Current Hospital Diet Patient's current hospital diet: Regular Diet Discharge Diet Recommended Diet: Regular Diet Procedures Procedures Performed: BRAIN MRI AND MRA, CT SCAN CHEST AND ABDOMEN Pending Studies Studies pending at discharge: yes List of pending studies: REPEAT CT SCAN OF THE CHEST Medical Emergencies . Who to Call and When: Medical Emergencies: If at any time you feel your situation is an emergency, please call 911 immediately. . Non-Emergent Contact Non-Emergency issues call your: Primary Care Provider Call Non-Emergent contact if: you have a fever, your pain is not controlled, you have any medication questions . . "Provider Documentation" section prepared by Rey Marquez. VTE Core Measure Inpt VTE Proph given/why not?: Enoxaparin (Lovenox)SQ
--- NOTE | 2017-01-22 16:10 | Progress Note ---
Medicine Progress Note Date & Time of Visit: Jan 22, 2017 at 15:52. Subjective patient seen resting in bed in good spirits states she has mild sore throat denies chills, myalgias, arthalgias, cough, sputum no problems with swallowing choreiform movements improved, no slurred speech almost back to baseline per family at bedside patient states she is ready and would like to go home today Objective Last 8 Hrs Date Time Temp Pulse Resp B/P Pulse Ox O2 Delivery O2 Flow Rate FiO2 01/22/17 15:22 37.2 79 18 145/73 96 Room Air 01/22/17 11:57 37.0 75 18 118/72 95 Room Air 01/22/17 10:41 81 97 01/22/17 08:30 96 Room Air 01/22/17 07:58 96 Room Air 01/22/17 07:54 36.9 75 16 113/65 96 Room Air Physical Exam: General- adult Eyes- anicteric ENT- mild erythema tonsillar region, no exudate/swelling Neck- supple, no JVD, no adenopathy, no thyromegaly Lungs- clear breath sounds bilaterally Heart- normal rate, regular rhythm; no murmurs Abdomen- normal bowel sounds, soft, nontender Extremities- no pretibial edema, no calf tenderness Neuro- alert, oriented x 3; no gross focal deficits noted Skin- warm & dry Laboratory Results: Last 24 Hours Test 01/22/17 00:00 Influenza Type A Antigen POS for Influ A Influenza Type B Antigen Neg for Influ B Assessment & Plan Increased Choreiform Movements, Resolving as per family members, she had been slurring her speech and with worsening choreiform movements Brain MRI and MRA: no acute process TSH, PTH: normal CT chest and abdomen ordered to r/o Paraneoplastic process: (+) 7x5mm right middle lobe nodule, ff up CT chest recommended - evaluated by Neurologist Dr. Oshea/PHIL Albright anti HU cv2/crmp5, CHANG, heavy metals, copper level, ceruloplasmin, B12, Lyme work up:pending patient declines atypical neuroleptics at this time - symptoms resolving outpatient ff up with Neurologist Influenza A Infection - exposed to tested positive for Flu - patient was having sore throat, (+) for Influenza A antigen - Tamiflu BID x 5 days ff up with PCP next week Right Middle Lobe Nodule CT chest: IMPRESSION: 1. 7 x 5 mm right middle lobe pulmonary nodule. Follow-up per Fleischner criteria is recommended 2. Borderline esophageal wall thickening Please refer to below summary of Fleischner criteria recommendations for follow-up of incidental CT nodules (Gus Bloom, Guidelines for management of small pulmonary nodules detected on CT scans: A statement from the Fleischner Society, Radiology 237: [phone].) Low Risk Patient: Minimal or no smoking or other known risk factors for malignancy <=4 mm: No follow-up needed. >4-6 mm: Initial follow-up CT at 12 months; if unchanged, no further follow-up. >6-8 mm: Initial follow-up CT at 6-12 months then at 18-24 months if no change. >8 mm: Follow-up CT at \R\3, 9, 24 months, or PET and/or biopsy. High Risk Patient: History of smoking or other known risk factors <=4 mm: Follow-up at 12 months; if unchanged, no further follow-up. >4-6 mm: Initial follow-up CT at 6-12 months then at 18-24 months if no change. >6-8 mm: Initial follow-up CT at 3-6 months then at 9-12 and 24 months if no change. >8 mm: Same as low risk patient. Note: Nodule size measured as average of length and width. Ground glass or partly solid nodules may require longer follow-up to exclude indolent adenocarcinoma. Hypertension Stable Patient is now off of triamterene-HCTZ HLD continue statin DVT ppx Lovenox Code status: Full Code Disposition: d/c home today ff up with PCP in 1 week ff up with Dr. Zeng in 1 week Current Inpatient Medications: Current Inpatient Medications Medications (Trade) Dose Ordered Sig/Katia Route Start Time Stop Time Status Last Admin Dose Admin Enoxaparin Sodium (Lovenox Inj) 40 mg Q24H SC 01/20/17 16:00 02/19/17 15:59 01/21/17 15:30 40 MG Acetaminophen (Tylenol Tab) 650 mg Q4H PRN PO 01/20/17 12:45 02/19/17 12:44 01/20/17 17:42 650 MG Al Hydrox/Mg Hydrox/Simethicone (Maalox Max Susp) 15 ml Q4H PRN PO 2/28/17 12:45 02/19/17 12:44 Magnesium Hydroxide (Milk Of Magnesia Susp) 30 ml Q12H PRN PO 01/20/17 12:45 02/19/17 12:44 Ondansetron HCl (Zofran Inj) 4 mg Q6H PRN IV 01/20/17 12:45 02/19/17 12:44 01/21/17 10:24 4 MG Polyethylene (Miralax Powder Packet) 17 gm DAILY PRN PO 01/20/17 12:45 02/19/17 12:44 Simvastatin (Zocor Tab) 40 mg QPM PO 01/20/17 21:00 02/19/17 20:59 01/21/17 20:25 40 MG Lorazepam 0.5 mg 0.5 mg Q4 PRN IV 01/20/17 12:45 02/19/17 12:44 Lorazepam/Syringe (Ativan Inj/ Syringe) 1 ml @ 1 mls/min Q4H PRN IV 01/20/17 15:15 02/19/17 15:14 Ioversol (Optiray 320) 125 ml UD PRN IV 01/21/17 11:00 01/25/17 10:59
--- NOTE | 2017-01-22 16:25 | Discharge Summary ---
Discharge Summary Date of Service Jan 22, 2017. Discharge Summary Admission Date: Jan 20, 2017 at 12:46 Discharge Date: Jan 22, 2017 Discharge Disposition: Home Principal Diagnosis: Increased Choreiform Movements, Resolving Secondary Diagnoses/Problems: Influenza A Infection Procedures: Brain MRI: IMPRESSION: Age-related atrophy and chronic small vessel change. No acute process. Head MRA: IMPRESSION: Unremarkable MR angiogram of the brain. Neck MRA: IMPRESSION: Unremarkable MR angiogram of the neck. CT Chest: IMPRESSION: 1. 7 x 5 mm right middle lobe pulmonary nodule. Follow-up per Fleischner criteria is recommended 2. Borderline esophageal wall thickening Please refer to below summary of Fleischner criteria recommendations for follow-up of incidental CT nodules (Gus Bloom, Guidelines for management of small pulmonary nodules detected on CT scans: A statement from the Fleischner Society, Radiology 237: [phone].) Low Risk Patient: Minimal or no smoking or other known risk factors for malignancy <=4 mm: No follow-up needed. >4-6 mm: Initial follow-up CT at 12 months; if unchanged, no further follow-up. >6-8 mm: Initial follow-up CT at 6-12 months then at 18-24 months if no change. >8 mm: Follow-up CT at \\R\\3, 9, 24 months, or PET and/or biopsy. High Risk Patient: History of smoking or other known risk factors <=4 mm: Follow-up at 12 months; if unchanged, no further follow-up. >4-6 mm: Initial follow-up CT at 6-12 months then at 18-24 months if no change. >6-8 mm: Initial follow-up CT at 3-6 months then at 9-12 and 24 months if no change. >8 mm: Same as low risk patient. Note: Nodule size measured as average of length and width. Ground glass or partly solid nodules may require longer follow-up to exclude indolent adenocarcinoma. Ct Abdomen: IMPRESSION: 1. Motion and streak artifact degraded examination. 2. There are no acute infectious or inflammatory findings in the abdomen or pelvis. See above. Consultations: Dr. Oshea, Neurologist Pending Studies/Follow-Up: Repeat CT chest to ff up lung nodule; Please refer to hospital course below. Medication Reconciliation New Medications: Oseltamivir (Tamiflu) 75 Mg Cap 75 MG PO BID, #9 CAP 0 Refills Continued Medications: Alprazolam (Xanax) 0.5 Mg Tab 0.5 MG PO TID PRN for Anxiety, TAB Alprazolam (Xanax) 0.5 Mg Tab 0.25 MG PO TID PRN for Anxiety, TAB Simvastatin (Zocor) 40 Mg Tab 40 MG PO QPM, TAB Admission Information HPI (per Admitting provider): This is a 76 year old female with PMH of HTN, HLD, and a long-standing history of choreiform movements - presented with slurred speech and worsening jerking movements of the arms and legs. She has been following with Dr. Zeng, neurology, as an outpatient due to these movements; she had multiple imaging tests and diagnostic tests, including ruling out Hubbard's chorea; as per neurology, this is more of a senile choreiform movement; patient was seen by primary care physician, Dr. Chasity Allen yesterday in the office and had an MRI done yesterday - showing volume loss in the parietal lobes - which is a chronic issue. Patient was seen today and brought in by nephew due to slurring of speech and worsening choreiform movements. When I went to exam the patient, slurring of speech has resolved; but the movements persist. She denies any pain, no other symptoms to note. Physical Exam (per Admitting): General Appearance: + mild distress (+anxious) Head: normocephalic, atraumatic Eyes: normal inspection ENT: hearing grossly normal Neck: supple Respiratory/Chest: chest non-tender, lungs clear, normal breath sounds, no respiratory distress, no accessory muscle use Cardiovascular: regular rate, rhythm, no edema, no murmur Abdomen/GI: normal bowel sounds, non tender, soft Back: normal inspection Extremities/Musculoskelatal: normal inspection, no calf tenderness, normal capillary refill, no pedal edema, normal range of motion Neurologic/Psych: alert, oriented x 3, + pertinent finding (involuntary jerking of both upper and lower extremities - anxious affect) Skin: normal color Lymphatic: no adenopathy Hospital Course Increased Choreiform Movements, Resolving as per family members, she had been slurring her speech and with worsening choreiform movements Brain MRI and MRA: no acute process TSH, PTH: normal CT chest and abdomen ordered to r/o Paraneoplastic process: (+) 7x5mm right middle lobe nodule, ff up CT chest recommended - evaluated by Neurologist Dr. Oshea/PHIL Albright anti HU cv2/crmp5, CHANG, heavy metals, copper level, ceruloplasmin, B12, Lyme work up:pending patient declines atypical neuroleptics at this time - symptoms resolving outpatient ff up with Neurologist Influenza A Infection - exposed to tested positive for Flu - patient was having sore throat, (+) for Influenza A antigen - Tamiflu BID x 5 days ff up with PCP next week Right Middle Lobe Nodule CT chest: IMPRESSION: 1. 7 x 5 mm right middle lobe pulmonary nodule. Follow-up per Fleischner criteria is recommended 2. Borderline esophageal wall thickening Please refer to below summary of Fleischner criteria recommendations for follow-up of incidental CT nodules (Gus Bloom, Guidelines for management of small pulmonary nodules detected on CT scans: A statement from the Fleischner Society, Radiology 237: [phone].) Low Risk Patient: Minimal or no smoking or other known risk factors for malignancy <=4 mm: No follow-up needed. >4-6 mm: Initial follow-up CT at 12 months; if unchanged, no further follow-up. >6-8 mm: Initial follow-up CT at 6-12 months then at 18-24 months if no change. >8 mm: Follow-up CT at \\R\\3, 9, 24 months, or PET and/or biopsy. High Risk Patient: History of smoking or other known risk factors <=4 mm: Follow-up at 12 months; if unchanged, no further follow-up. >4-6 mm: Initial follow-up CT at 6-12 months then at 18-24 months if no change. >6-8 mm: Initial follow-up CT at 3-6 months then at 9-12 and 24 months if no change. >8 mm: Same as low risk patient. Note: Nodule size measured as average of length and width. Ground glass or partly solid nodules may require longer follow-up to exclude indolent adenocarcinoma. Hypertension Stable Patient is now off of triamterene-HCTZ HLD continue statin DVT ppx Lovenox Code status: Full Code Disposition: d/c home today ff up with PCP in 1 week ff up with Dr. Mateer in 1 week Total time spent on discharge = 45 minutes This includes examination of the patient, discharge planning, medication reconciliation, and communication with other providers. Discharge Instructions Discharge Instructions Admission Reason for Admission: Choreiform Movements, Stroke-Like Symptoms Discharge Discharge Diagnosis / Problem: CHOREIFORM MOVEMENTS Discharge Goals Goal(s): Diagnostic testing, Therapeutic intervention Activity Recommendations Activity Limitations: as noted below (NO HEAVY EXERTION UNTIL RE=EVALUATED BY PRIMARY CARE PHYSICIAN ON FOLLOW UP) . Instructions / Follow-Up Instructions / Follow-Up PLEASE CALL PRIMARY CARE PHYSICIAN OR RETURN TO ER IMMEDIATELY IF WITH PERSISTENT HIGH GRADE FEVER, NAUSEA/VOMITING, WEAKNESS, COUGH, SHORTNESS OF BREATH. ENSURE ADEQUATE DAILY FLUID INTAKE. AVOID GOING TO PUBLIC PLACES UNTIL FINISHED WITH TAMIFLU COURSE. FOLLOW UP WITH DR. ALVARENGA (ASSOCIATE OF DR. ALLEN) ON Thursday01/27/17 AT 10: [address] AM. FOLLOW UP WITH [address] ZENG SCHEDULED. Current Hospital Diet Patient's current hospital diet: Regular Diet Discharge Diet Recommended Diet: Regular Diet Procedures Procedures Performed: BRAIN MRI AND MRA, CT SCAN CHEST AND ABDOMEN Pending Studies Studies pending at discharge: yes List of pending studies: REPEAT CT SCAN OF THE CHEST Medical Emergencies . Who to Call and When: Medical Emergencies: If at any time you feel your situation is an emergency, please call 911 immediately. . Non-Emergent Contact Non-Emergency issues call your: Primary Care Provider Call Non-Emergent contact if: you have a fever, your pain is not controlled, you have any medication questions . . "Provider Documentation" section prepared by Rey Marquez. VTE Core Measure Inpt VTE Proph given/why not?: Enoxaparin (Lovenox)SQ
[2017-01-22] MEDS: ENOXAPARIN 40 MG/0.4 ML SYR SC SCH (16:30)
[2017-01-23 12:46] LABS: HYDROXYETHYLFLURAZEPAM CONF NEGATIVE NG/ML (CUTOFF=50); HYDROXYMIDAZOLAM NEGATIVE NG/ML (CUTOFF=50); HYDROXYTRIAZOLAM CONF NEGATIVE NG/ML (CUTOFF=50); TEMAZEPAM CONF NEGATIVE NG/ML (CUTOFF=50)
[2017-01-23 16:33] LABS: COLLECTION SAMPLE Venous; LEAD BLOOD 2 mcg/dL (<5)
--- NOTE | 2017-01-29 13:44 | CODING QUERY MEDICAL NECESSITY ---
SUPPORTING DIAGNOSIS NEEDED A supporting diagnosis is required for the test/procedure performed on this patient in order for us to be reimbursed by the patient's insurance. Please provide a supporting diagnosis for the following test/procedure listed below next to the test name along with your signature. *If there is no additional diagnosis for this patient that would support the following test/procedure please document that below next to the test/procedure. Test(s)/Procedure(s) that require a supporting diagnosis: * MRA HEAD W/OUT CONTRAST DIAGNOSIS: * MRA NECK COMBO DIAGNOSIS: * FERRITIN DIAGNOSIS: * DOS: 01/20/17 Provider Signature: Date: Thank you Polly Lemon Health Information Management For questions please call [phone]
--- NOTE | 2017-01-29 14:04 | EDITING REQUIRED CODING QUERY ---
SUPPORTING DIAGNOSIS NEEDED A supporting diagnosis is required for the test/procedure performed on this patient in order for us to be reimbursed by the patient's insurance. Please provide a supporting diagnosis for the following test/procedure listed below next to the test name along with your signature. *If there is no additional diagnosis for this patient that would support the following test/procedure please document that below next to the test/procedure. Test(s)/Procedure(s) that require a supporting diagnosis: * MRA HEAD W/O CONTRAST DIAGNOSIS: CVA * MRA NECK COMBO DIAGNOSIS:CVA * FERRITIN DIAGNOSIS:anemia * DOS: 01/20/17 Provider Signature: Date: Thank you Polly Lemon Health Information Management For questions please call [phone]
== END 2017-01-22 16:45 | disposition home or self-care (01) | DRG 57 ==
LOC: ENRESERVDT → ENRESERVTM → C.EDB 10:06 → C.2T 12:46 → UNDOADMIN 14:50 → C.4E 01-21 20:03
PROVIDERS: ADMIT Family Medicine; ATTEND Internal Medicine
DX: G25.5 Other chorea (principal); J11.1 Influenza due to unidentified influenza virus with other respiratory manifestations; E78.5 Hyperlipidemia, unspecified; I10 Essential (primary) hypertension; R91.1 Solitary pulmonary nodule; R47.81 Slurred speech; Z79.899 Other long term (current) drug therapy

== ENCOUNTER → 2018-03-11 | Outpatient (CLI) | payer OTHER ==
[~2018-03-11] MED LIST: ALPR-411 PO; OPTIRAY 320 IV PRN; OSEL75CA12 PO; SIMV40TA2 PO
--- NOTE | 2018-03-11 09:41 | DIAGNOSTIC IMAGING REPORT ---
CT OF THE CHEST WITH IV CONTRAST CLINICAL HISTORY: PULMONARY NODULE COMPARISON STUDY: 01/21/2017 TECHNIQUE: Following the IV administration of 93 mL of Optiray-320, CT of the thorax was performed from the thoracic inlet to the lung bases. Images are reviewed in the axial, sagittal, and coronal planes. IV contrast was administered without complication. A dose lowering technique was utilized adhering to the principles of ALARA. CT DOSE: 184.01 mGy.cm FINDINGS: Thyroid: Imaged portions of the thyroid gland are normal in appearance. Thoracic aorta: The thoracic aorta is normal in course and caliber, noting standard 3-vessel arch anatomy. No aneurysm or dissection is seen. Pulmonary vasculature: The pulmonary trunk is normal in caliber. There are no central filling defects identified to suggest pulmonary embolus. Note that this examination was not protocoled for the evaluation of pulmonary emboli. HEART: The heart is normal in size and configuration, without pericardial effusion. Lungs and pleural spaces: There is a stable 7 x 4 mm right middle lobe pulmonary nodule as visualized in image #[id number]. There is a stable 4 mm left lower lobe pulmonary nodule. In retrospect this was present on the preceding study but difficult to visualize due to atelectasis and respiratory motion artifact. Mediastinum: There is a stable calcified precarinal lymph node. Leigha: There is no evidence of pathologic hilar lymphadenopathy. There are calcified right hilar lymph nodes Axilla: There is no evidence of pathologic axillary lymphadenopathy. Upper abdomen: Partially visualized upper abdominal viscera is within normal limits. Skeletal structures: There are no lytic or blastic osseous lesions. IMPRESSION: 1. Stable 7 x 4 mm right middle lobe solid pulmonary nodule 2. Stable solid 4 mm left lower lobe pulmonary nodule 3. 12 month follow-up is recommended per Fleischner criteria. Electronically signed by: Nazario Trejo M.D. 03/11/2018 9:40 AM Dictated Date/Time: 03/11/2018 9:29 AM
== END | disposition home or self-care (01) ==
LOC: C.CTS 09:00
PROVIDERS: ATTEND Student in an Organized Health Care Education/Training Program
DX: R91.8 Other nonspecific abnormal finding of lung field (principal)

== ENCOUNTER 2020-06-26 17:08 | Observation (INO) ==
[2020-06-26] MEDS ORDERED: SODIUM CHLORIDE 0.9% 1000ML 1,000 ML IV SCH (17:45)
[2020-06-26 17:51] LABS: Basophils # (auto) 0.01 K/uL (0-0.2); Basophils % (auto) 0.1 %; Eosinophils # (auto) 0.05 K/uL (0-0.5); Eosinophils % (auto) 0.4 %; Hematocrit (blood only) 42.1 % (37-47); Hemoglobin 14.7 g/dL (12.0-16.0); Immature Granulocytes # (auto) 0.03 K/uL (0.00-0.02); Immature Granulocytes % (auto) 0.2 %; Lymphocytes # (auto) 1.76 K/uL (1.2-3.4); Lymphocytes % (auto) 14.1 %; Mean Corpuscular Hemoglobin 31.8 pg (25-34); Mean Corpuscular Hgb Conc 34.9 g/dL (32-36); Mean Corpuscular Volume 91.1 fL (80-100); Mean Platelet Volume 9.3 fL (7.4-10.4); Monocytes # (auto) 0.77 K/uL (0.11-0.59); Monocytes % (auto) 6.2 %; Neutrophils # (auto) 9.87 K/uL (1.4-6.5); Platelet Count 194 K/uL (130-400); RDW Coefficient of Variation 12.6 % (11.5-14.5); RDW Standard Deviation 42.2 fL (36.4-46.3); Red Blood Count 4.62 M/uL (4.2-5.4); White Blood Count 12.49 K/uL (4.8-10.8)
[2020-06-26 18:01] LABS: Prothrombin Time 10.3 Seconds (9.0-12.0)
--- NOTE | 2020-06-26 18:02 | CT Scan Report ---
CT SCAN OF THE BRAIN WITHOUT IV CONTRAST CLINICAL HISTORY: Fall. Dizziness. COMPARISON STUDY: CT of the brain dated 01/12/2017. TECHNIQUE: Unenhanced axial CT scan of the brain is performed from the vertex to the skull base. A do se lowering technique was utilized adhering to the principles of ALARA. CT DOSE: 860.70 mGy.cm FINDINGS: Brain parenchyma: There are age-related involutional changes noting mild to moderate subcortical and periventricular microangiopathic change. There is no hemorrhage, mass effect, or evidence of acute t erritorial ischemia by CT criteria. Pandey-white matter differentiation is preserved. No extra-axial fl uid collection is seen. Mineralization is noted in the basal ganglia. Ventricles, sulci, cisterns: Prominent secondary to involutional change. Intracranial vasculature: There is atherosclerotic calcification of the cavernous carotid arteries. Calvarium: The skeletal structures are osteopenic. No depressed calvarial fracture is identified. Soft tissues: Soft tissue contusion is noted at the posterior vertex. Sinuses and mastoids: The visualized paranasal sinuses are clear. The mastoid air cells are well pneu matized. Orbits: The bony orbits are grossly intact. There are bilateral ocular lens implants. IMPRESSION: There is no hemorrhage, mass effect, or evidence of acute territorial ischemia by CT eboni mejia. ACT 112: Negative or not required by law. Electronically signed by: Rickie Rajput M.D. 06/26/2020 6:01 PM
--- NOTE | 2020-06-26 18:07 | CT Scan Report ---
CT SCAN OF THE CERVICAL SPINE CLINICAL HISTORY: Fall. COMPARISON STUDY: No priors. TECHNIQUE: CT scan of the cervical spine is performed from the skull base to the upper thoracic spine . Images are reviewed in the axial, sagittal, and coronal planes. IV contrast was not administered fo r this examination. A dose lowering technique was utilized adhering to the principles of ALARA. FINDINGS: Skeletal structures: The skeletal structures are osteopenic. There is no evidence of fracture or subl uxation involving the cervical spine. Vertebral body height and alignment are maintained. The odonto id process and lateral masses are intact. The atlantoaxial articulation is preserved noting productiv e degenerative change. The spinous processes appear intact. Intervertebral discs: There is mild degenerative disc space narrowing seen at C5-C6. The remaining di sc spaces are maintained. Central canal: Grossly patent. Soft tissues: The prevertebral and paraspinous soft tissues are within normal limits. Calvarium: The visualized calvarium at the skull base appears intact. Brain parenchyma: Partially visualized brain parenchyma the skull base is within normal limits. Sinuses and mastoids: The visualized paranasal sinuses are clear. The mastoid air cells are well pneu matized. Cerumen is noted in the external auditory canals. Lung apices: Clear as visualized. IMPRESSION: There is no evidence of fracture or subluxation involving the cervical spine. ACT 112: Negative or not required by law. Electronically signed by: Rickie Rajput M.D. 06/26/2020 6:05 PM
[2020-06-26 18:19] LABS: Alanine Aminotransferase 29 U/L (12-78); Albumin Level 3.9 gm/dl (3.4-5.0); Aspartate Aminotransferase 20 U/L (15-37); BUN Creatinine Ratio 21.1 (10-20); Blood Urea Nitrogen 24 mg/dl (7-18); Carbon Dioxide 23 mmol/L (21-32); Chloride 109 mmol/L (98-107); Est GFR (African American) 53.5; Est GFR (Non-African American) 46.2; Glucose 113 mg/dl (70-99); Potassium 3.5 mmol/L (3.5-5.1); Sodium 142 mmol/L (136-145)
--- NOTE | 2020-06-26 18:22 | Emergency Department Note ---
Impression & Plan Syncope, Distal radial fracture, Contusion of occipital region of scalp ED Provider Note NAME: DEE GRIFFITH AGE: 79 SEX: F : 1940 ARRIVES VIA: Walk-In INFORMANT: Patient, ED PROVIDER(S): Akash Lindsey MD Chief Complaint: Fall, syncope HPI: Patient was reportedly coming back from checking the mail when the patient was found on her back by her . The patient believes that her syncopal event might of lasted seconds. Patient states that she did not have any presyncopal symptoms including lightheadedness dizziness recent change in position. Patient denies any chest pains, shortness of breath. Patient denies symptoms of COVID. The patient denies any nausea vomiting or diarrhea. The patient states that she has been hydrating well no prolonged time outdoors. 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 No recent changes in medications. The patient does not have any bowel or bladder symptoms. The patient does complain of some mild left wrist as well as some posterior head pain. She describes these as achy and occasionally sharp with palpation. Patient did not take any prior to arrival it is been fairly constant but worsens does with palpation. ROS: See HPI for pertinent positives and negatives. A total of 10 systems were reviewed and otherwise negative. Past medical history: See below Surgical history: See below Social history: See below Physical Exam: GENERAL: Well appearing, well nourished, NAD, non-toxic. EYE EXAM: Normal conjunctiva. PERRL, no anisocoria and EOM's grossly intact w/o pain. Head: Occipital contusion but without laceration. NECK: Supple, no nuchal rigidity, no adenopathy, non-tender. No signs of meningismus. No midline C-spine TTP. LUNGS: Clear to auscultation. Normal chest wall mechanics. HEART: NSR, no MRG. ABDOMEN: Abdomen soft, non-tender, normo-active bowel sounds, no masses, no rebound or guarding. BACK: No CVA TTP. No midline thoracic or lumbar back pain. SKIN: No rashes and no bruising. UPPER EXTREMITIES: Mild pain to the bilateral aspects of the left wrist without gross deformity, decreased range of motion secondary to pain, and you are nerves intact distally compartments are soft. LOWER EXTREMITIES: Grossly normal, no edema. No obvious deformities or TTP. NEURO EXAM: A&O x3, cranial nerves II-XII grossly intact, normal speech, moves all 4 extremities on command w/o issue. Differential diagnoses: Vasovagal event, dehydration, infection, hypoglycemia, electrolyte abnormalities, cardiac sources, intracerebral event, pulmonary embolism, seizure, toxicologic, neurologic, as well as other pathologies. Course: Patient was seen and evaluated the bedside. Full history physical exam was performed. EKG: Indication: Syncope Normal sinus rhythm, rate of 72, normal intervals, normal axis, no obvious arrhythmia or ischemic change. No significant change in January 20, 2017. Imaging Studies: Radiology results as stated below per my review in the radiologist's interpretation: SINGLE VIEW CHEST CLINICAL HISTORY: Generalized weakness. FINDINGS: An AP, portable, upright chest radiograph is compared to study dated 01/22/2017 and correlated with chest CT dated 04/15/2019. The examination is degraded by portable technique and patient rotation. The cardiomediastinal silhouette is unremarkable noting atherosclerotic calcification of the thoracic aorta. The lungs and pleural spaces are clear. No pneumothorax is seen. The skeletal structures are osteopenic. The bony thorax is grossly intact. Advanced arthritic change is seen in the left shoulder. IMPRESSION: No active disease in the chest. ACT 112: Negative or not required by law. Electronically signed by: Rickie Rajput M.D. 06/26/2020 6:22 PM Dictated: 06/26/201819 Transcribed: 06/26/201819 LEFT WRIST 4 VIEWS CLINICAL HISTORY: Fall with left wrist injury. FINDINGS: 4 views of the left wrist are obtained. No prior studies are available for comparison at the time of dictation. The skeletal structures are osteopenic. There is an impacted fracture of the distal radial metaphysis with intra- articular extension and minimal apex volar angulation. Overlying soft tissue edema is noted. The distal ulna is intact. The radiocarpal articulation is preserved. Minimal osteoarthritic change is noted at the first carpometacarpal joint. IMPRESSION: Impacted fracture of the distal radial metaphysis as above. Electronically signed by: Rickie Rajput M.D. 06/26/2020 6:23 PM Dictated: 06/26/201821 Transcribed: 06/26/201821 CT SCAN OF THE BRAIN WITHOUT IV CONTRAST CLINICAL HISTORY: Fall. Dizziness. COMPARISON STUDY: CT of the brain dated 01/12/2017. TECHNIQUE: Unenhanced axial CT scan of the brain is performed from the vertex to the skull base. A dose lowering technique was utilized adhering to the principles of ALARA. CT DOSE: 860.70 mGy.cm FINDINGS: Brain parenchyma: There are age-related involutional changes noting mild to moderate subcortical and periventricular microangiopathic change. There is no hemorrhage, mass effect, or evidence of acute territorial ischemia by CT criteria. Pandey-white matter differentiation is preserved. No extra-axial fluid collection is seen. Mineralization is noted in the basal ganglia. Ventricles, sulci, cisterns: Prominent secondary to involutional change. Intracranial vasculature: There is atherosclerotic calcification of the cavernous carotid arteries. Calvarium: The skeletal structures are osteopenic. No depressed calvarial fracture is identified. Soft tissues: Soft tissue contusion is noted at the posterior vertex. Sinuses and mastoids: The visualized paranasal sinuses are clear. The mastoid air cells are well pneumatized. Orbits: The bony orbits are grossly intact. There are bilateral ocular lens implants. IMPRESSION: There is no hemorrhage, mass effect, or evidence of acute territorial ischemia by CT criteria. ACT 112: Negative or not required by law. Electronically signed by: Rickie Rajput M.D. 06/26/2020 6:01 PM Dictated: 06/26/201757 Transcribed: 06/26/201757 CT SCAN OF THE CERVICAL SPINE CLINICAL HISTORY: Fall. COMPARISON STUDY: No priors. TECHNIQUE: CT scan of the cervical spine is performed from the skull base to the upper thoracic spine. Images are reviewed in the axial, sagittal, and coronal planes. IV contrast was not administered for this examination. A dose lowering technique was utilized adhering to the principles of ALARA. FINDINGS: Skeletal structures: The skeletal structures are osteopenic. There is no evidence of fracture or subluxation involving the cervical spine. Vertebral body height and alignment are maintained. The odontoid process and lateral masses are intact. The atlantoaxial articulation is preserved noting productive degenerative change. The spinous processes appear intact. Intervertebral discs: There is mild degenerative disc space narrowing seen at C5-C6. The remaining disc spaces are maintained. Central canal: Grossly patent. Soft tissues: The prevertebral and paraspinous soft tissues are within normal limits. Calvarium: The visualized calvarium at the skull base appears intact. Brain parenchyma: Partially visualized brain parenchyma the skull base is within normal limits. Sinuses and mastoids: The visualized paranasal sinuses are clear. The mastoid air cells are well pneumatized. Cerumen is noted in the external auditory canals. Lung apices: Clear as visualized. IMPRESSION: There is no evidence of fracture or subluxation involving the cervical spine. ACT 112: Negative or not required by law. Electronically signed by: Rickie Rajput M.D. 06/26/2020 6:05 PM Dictated: 06/26/201800 Transcribed: 06/26/201800 Cardiac monitoring: An order was placed for continuous cardiac monitoring. The monitor shows a rate of 70 with sinus rhythm. Procedures: Splinting Indication: Left distal radius fracture Verbal consent obtained. Risks and benefits were explained with the usual customary discussion. The injured extremity was identified. The patient was prepped and measured for the placement of a sugar tong Ortho-glass splint. Splint applied in the standard fashion over a layer of webril and secured using an elastic bandage. Set into a position of function. Normal neurovascular status after placement verified by me. The patient tolerated the procedure well and the care of the splint was discussed with the patient/family. No complications. MDM: Patient was seen due to concern for syncope. Blood work was obtained along with CT of the head and a left wrist film. Does have mild white count of 12. Normal H&H and platelet count. The patient's kidney function is unremarkable. The patient may have a slight prerenal azotemia and the patient did receive IV fluids. EKG is nonischemic with no obvious arrhythmia. Urinalysis negative. TSH is normal along with a troponin. Patient CT of the head and cervical spine did not show any acute fracture or dislocation or ICH. Chest x-ray is otherwise clear. Did have discussion with the patient the patient's family member given the patient's undifferentiated syncope without any clear change in position or warning and without any clear metabolic abnormality I believe the patient would benefit from inpatient observation and treatment. They are agreeable to current plan of care. I did speak with Dr. Russell and the patient was admitted to the [facility] service. Definitive Fracture Care note: Dx: Left distal radius fracture Plan: Immobilization, rest, ice, elevation, analgesia, orthopedic follow up in 3-5 days. Past Med/Surg History Medical History (Updated 06/26/20 @ 21:20 by Kamryn Maciel PA-C) Choreiform movements HLD (hyperlipidemia) Stroke-like symptoms Surgical History H/O colonoscopy Family History Mother Lung cancer Son Dyslipidemia Social History Smoking Status: Never smoker Hx Alcohol Use: Yes Alcohol type: wine Alcohol Intake Frequency: 4 or More x per/Week Hx Substance Use: No Feels Safe at Home: Yes Allergies Allergies Allergy/AdvReac Type Severity Reaction Status Date / Time No Known Allergies Allergy Unverified 01/20/17 11:17 Home Meds Home Medications Medication Instructions Recorded Confirmed calcium carbonate [Calcium 500] 500 mg PO DAILY 06/26/20 06/26/20 multivitamin 1 tab PO DAILY 06/26/20 06/26/20 simvastatin 40 mg PO QPM 06/26/20 06/26/20 tetrabenazine 25 mg PO BID 06/26/20 06/26/20 Results & Data (ED) Vital Signs Vital Signs - 24 hr 06/26/20 17:11 06/26/20 18:05 06/26/20 18:06 Temperature 36.9 C Temperature Source Oral Pulse Rate 74 Pulse Rate [Apical] 70 Pulse Rhythm [Apical] Regular Pulse Strength [Apical] Normal Respiratory Rate 18 20 Respiratory Effort / Characteristics Non-Labored Non-Labored Spontaneous Respiratory Depth Normal Normal Respiratory Pattern Regular Blood Pressure 147/78 H Blood Pressure [Right Arm] 138/81 Blood Pressure Mean 101 Blood Pressure Mean [Right Arm] 100 Blood Pressure Position [Right Arm] Sitting Pulse Oximetry 94 96 96 Oxygen Delivery Method Room Air Room Air Room Air Sepsis Recent Fever Within 48 Hours No Sepsis New/Unexplained Change in Mental Status No Sepsis Action Taken by Nursing No Action Required 06/26/20 19:49 06/26/20 21:14 Temperature Temperature Source Pulse Rate Pulse Rate [Apical] 79 78 Pulse Rhythm [Apical] Pulse Strength [Apical] Respiratory Rate 20 20 Respiratory Effort / Characteristics Respiratory Depth Respiratory Pattern Blood Pressure Blood Pressure [Right Arm] 134/79 140/62 Blood Pressure Mean Blood Pressure Mean [Right Arm] 97 88 Blood Pressure Position [Right Arm] Pulse Oximetry 98 97 Oxygen Delivery Method Sepsis Recent Fever Within 48 Hours Sepsis New/Unexplained Change in Mental Status Sepsis Action Taken by Detention Medications Current Medication List: was personally reviewed by me Laboratory Data Attestation: I reviewed the patient's lab results. Result diagrams: 06/26/20 17:43 06/26/20 17:43 Lab Results 06/26/20 06/26/20 06/26/20 Range/Units 17:43 17:43 17:43 WBC 12.49 H (4.8-10.8) K/uL RBC 4.62 (4.2-5.4) M/uL Hgb 14.7 (12.0-16.0) g/dL Hct 42.1 (37-47) % MCV 91.1 (80-100) fL MCH 31.8 (25-34) pg MCHC 34.9 (32-36) g/dL RDW Std Deviation 42.2 (36.4-46.3) fL RDW Coeff of Chris 12.6 (11.5-14.5) % Plt Count 194 (130-400) K/uL MPV 9.3 (7.4-10.4) fL Immature Gran % (Auto) 0.2 % Neut % (Auto) 79.0 % Lymph % (Auto) 14.1 % [place] % (Auto) 6.2 % Eos % (Auto) 0.4 % Baso % (Auto) 0.1 % Neut # (Auto) 9.87 H (1.4-6.5) K/uL Lymph # (Auto) 1.76 (1.2-3.4) K/uL [place]eton # (Auto) 0.77 H (0.11-0.59) K/uL Eos # (Auto) 0.05 (0-0.5) K/uL Baso # (Auto) 0.01 (0-0.2) K/uL Immature Gran # (Auto) 0.03 H (0.00-0.02) K/uL PT 10.3 (9.0-12.0) Seconds INR 1.0 (0.9-1.1) Sodium 142 (136-145) mmol/L Potassium 3.5 (3.5-5.1) mmol/L Chloride 109 H (98-107) mmol/L Carbon Dioxide 23 (21-32) mmol/L Anion Gap 10.0 (3-11) BUN 24 H (7-18) mg/dl Creatinine 1.13 (0.6-1.2) mg/dl Est Cr Clr Drug Dosing Not Reportable Est GFR ( Amer) 53.5 Est GFR (Non-Af Amer) 46.2 BUN/Creatinine Ratio 21.1 H (10-20) Glucose 113 H (70-99) mg/dl Calcium 9.0 (8.5-10.1) mg/dl Magnesium 2.0 (1.8-2.4) mg/dl Total Bilirubin 0.4 (0.2-1) mg/dl AST 20 (15-37) U/L ALT 29 (12-78) U/L Alkaline Phosphatase 51 (45-117) U/L Troponin I < 0.015 (0-0.045) ng/ml Total Protein 8.0 (6.4-8.2) gm/dl Albumin 3.9 (3.4-5.0) gm/dl Globulin 4.1 H (2.5-4.0) gm/dl Albumin/Globulin Ratio 1.0 (0.9-2) TSH 4.090 (0.300-4.500) uIu/ml Urine Color Urine Appearance (Clear) Urine pH (4.5-7.5) Ur Specific [place] (1.000-1.030) Urine Protein (Negative) Urine Glucose (UA) (Negative) Urine Ketones (Negative) Urine Blood (Negative) Urine Nitrite (Negative) Urine Bilirubin (Negative) Urine Urobilinogen (Negative) Ur Leukocyte Esterase (Negative) 06/26/20 Range/Units 20:26 WBC (4.8-10.8) K/uL RBC (4.2-5.4) M/uL Hgb (12.0-16.0) g/dL Hct (37-47) % MCV (80-100) fL MCH (25-34) pg MCHC (32-36) g/dL RDW Std Deviation (36.4-46.3) fL RDW Coeff of Chris (11.5-14.5) % Plt Count (130-400) K/uL MPV (7.4-10.4) fL Immature Gran % (Auto) % Neut % (Auto) % Lymph % (Auto) % [place] % (Auto) % Eos % (Auto) % Baso % (Auto) % Neut # (Auto) (1.4-6.5) K/uL Lymph # (Auto) (1.2-3.4) K/uL [place] # (Auto) (0.11-0.59) K/uL Eos # (Auto) (0-0.5) K/uL Baso # (Auto) (0-0.2) K/uL Immature Gran # (Auto) (0.00-0.02) K/uL PT (9.0-12.0) Seconds INR (0.9-1.1) Sodium (136-145) mmol/L Potassium (3.5-5.1) mmol/L Chloride (98-107) mmol/L Carbon Dioxide (21-32) mmol/L Anion Gap (3-11) BUN (7-18) mg/dl Creatinine (0.6-1.2) mg/dl Est Cr Clr Drug Dosing Est GFR ( Amer) Est GFR (Non-Af Amer) BUN/Creatinine Ratio (10-20) Glucose (70-99) mg/dl Calcium (8.5-10.1) mg/dl Magnesium (1.8-2.4) mg/dl Total Bilirubin (0.2-1) mg/dl AST (15-37) U/L ALT (12-78) U/L Alkaline Phosphatase (45-117) U/L Troponin I (0-0.045) ng/ml Total Protein (6.4-8.2) gm/dl Albumin (3.4-5.0) gm/dl Globulin (2.5-4.0) gm/dl Albumin/Globulin Ratio (0.9-2) TSH (0.300-4.500) uIu/ml Urine Color Yellow Urine Appearance Clear (Clear) Urine pH 5.0 (4.5-7.5) Ur Specific [place] 1.015 (1.000-1.030) Urine Protein Negative (Negative) Urine Glucose (UA) Negative (Negative) Urine Ketones Negative (Negative) Urine Blood Negative (Negative) Urine Nitrite Negative (Negative) Urine Bilirubin Negative (Negative) Urine Urobilinogen Negative (Negative) Ur Leukocyte Esterase Negative (Negative) Administered Medications Discontinued Medications Sodium Chloride (Nss 1000ml) 1,000 mls @ 999 mls/hr IV .[id number] REX Stop: 06/26/20 18:45 Last Infusion: 06/26/20 19:08 Dose: 0 mls/hr Documented by: [id number] Admin: 06/26/20 18:07 Dose: 999 mls/hr Documented by: [id number] Discharge Plan Visit Data Chief Complaint: Fall Stated Complaint: FALL ED Provider: Akash Lindsey Discharge Problem: Syncope, Distal radial fracture, Contusion of occipital region of scalp Forms Stand Alone Forms: [facility] [employer] Prescriptions Prescriptions: No Action multivitamin Tablet 1 tab PO DAILY RF: 0 simvastatin 40 mg Tablet 40 mg PO QPM RF: 0 calcium carbonate [Calcium 500] 500 mg calcium (1,250 mg) Tablet,Chewable 500 mg PO DAILY RF: 0 tetrabenazine 25 mg Tablet 25 mg PO BID RF: 0
--- NOTE | 2020-06-26 18:23 | XRay Report ---
SINGLE VIEW CHEST CLINICAL HISTORY: Generalized weakness. FINDINGS: An AP, portable, upright chest radiograph is compared to study dated 01/22/2017 and correlate d with chest CT dated 04/15/2019. The examination is degraded by portable technique and patient rotati on. The cardiomediastinal silhouette is unremarkable noting atherosclerotic calcification of the tho racic aorta. The lungs and pleural spaces are clear. No pneumothorax is seen. The skeletal structures are osteopenic. The bony thorax is grossly intact. Advanced arthritic change is seen in the left subhash ulder. IMPRESSION: No active disease in the chest. ACT 112: Negative or not required by law. Electronically signed by: Rickie Rajput M.D. 06/26/2020 6:22 PM
--- NOTE | 2020-06-26 18:25 | XRay Report ---
LEFT WRIST 4 VIEWS CLINICAL HISTORY: Fall with left wrist injury. FINDINGS: 4 views of the left wrist are obtained. No prior studies are available for comparison at th e time of dictation. The skeletal structures are osteopenic. There is an impacted fracture of the dis chantelle radial metaphysis with intra-articular extension and minimal apex volar angulation. Overlying sof t tissue edema is noted. The distal ulna is intact. The radiocarpal articulation is preserved. Minima l osteoarthritic change is noted at the first carpometacarpal joint. IMPRESSION: Impacted fracture of the distal radial metaphysis as above. Electronically signed by: Rickie Rajput M.D. 06/26/2020 6:23 PM
[2020-06-26 18:42] LABS: Alkaline Phosphatase 51 U/L (45-117); Bilirubin,Total 0.4 mg/dl (0.2-1); Globulin 4.1 gm/dl (2.5-4.0); Troponin I < 0.015 ng/ml (0-0.045)
[2020-06-26 20:35] LABS: Appearance Urine Clear (Clear); Bilirubin Urine Negative (Negative); Blood Urine Negative (Negative); Color Urine Yellow; Glucose Urine UA Negative (Negative); Ketones Urine Negative (Negative); Leukocyte Esterase Urine Negative (Negative); Nitrite Urine Negative (Negative); Protein Urine Negative (Negative); Specific Gravity Urine 1.015 (1.000-1.030); Urobilinogen Urine Negative (Negative)
--- NOTE | 2020-06-26 20:58 | History & Physical Report ---
Date of Service June 26, 2020 Assessment & Plan (1) Unwitnessed fall: Pt is 79 y/o F with PMH chorea, dyslipidemia presented to ER with c/o fall today. Pt states remembers walking to mailbox to get mail and next thing she remembers is her standing over her and she was lying in the driveway. In ER pt afebrile, P: 74, R: 18, BP: 147/78, 94% on RA. UA negative. WBC: 12, H/H: 14/42, glucose: 113, no significant electrolyte abnormality, negative Troponin. CT HEAD: There is no hemorrhage, mass effect, or evidence of acute territorial ischemia by CT criteria. CT C-SPINE:There is no evidence of fracture or subluxation involving the cervical spine. CXR: No active disease in the chest. -Admit tele to monitor for any arrhythmias -D-dimer pending -Fall precautions -MRI brain, echo -Consider EEG, neurology consult -CBC, BMP in am (2) Fracture, radius, distal: LEFT WRIST XRAY: Impacted fracture of the distal radial metaphysis as above. Splint was applied in ER Scheduled Tylenol for pain, oxycodone prn pain Ortho consult (3) Choreiform movements: H/O Chorea following with neurology at [facility] -Will continue tetrabenazine (4) HLD (hyperlipidemia): -Continue simvastatin DVT Prophylaxis -SCDs for now DNR/DNI as per discussion with pt Follows with Dr Allen for routine care Pt was seen and care coordinated with Dr Watson. See addendum History of Present Illness Chief Complaint: Unwitnessed fall Primary Care Provider: Chasity Allen DO Pt is 79 y/o F with PMH chorea, dyslipidemia presented to ER with c/o fall today. Pt states remembers walking to mailbox to get mail and next thing she remembers is her standing over her and she was lying in the driveway. reports that he was in and out of the house and pt couldn't have fallen more than a few minutes prior to him finding her. He states he found her lying on her back and she was awake but seemed a little confused. Denies loss control of bowel/bladder. Pt c/o WARD and left wrist pain but was able to get up and walk. She states she was feeling fine prior to walking to mailbox and denies any CP, SOB, dizziness when she went out for the mail. Reports after she takes her tetrabenazine is tired. She takes it around noon and 10pm. states fall was around 3pm today. Denies recent falls. Walks 2 miles a day and does PT exercises at home 3 times a week. reports has noticed when pt walks she sometimes veers to the left and this has been occurring for at least a year and has been discussed with neurology. reports that pt does have problems with memory and often forgets things. States pt has been doing really well on the tetrabenazine and hasn't had full chorea like episodes for awhile. Denies fever/chills, diaphoresis, N/V/D/C, WARD, dizziness, vision changes, neck pain, back pain, CP, SOB, orthopnea, palpitations, cough, sore throat, choking, otalgia, rhinorrhea, abdominal pain, paresthesias, extremity weakness, extremity edema, rashes, urinary symptoms. Allergies Allergy/AdvReac Type Severity Reaction Status Date / Time No Known Allergies Allergy Unverified 01/20/17 11:17 Home Medications Home Medications Medication Instructions Recorded Confirmed Type calcium carbonate [Calcium 500] 500 mg PO DAILY 06/26/20 06/26/20 History multivitamin 1 tab PO DAILY 06/26/20 06/26/20 History simvastatin 40 mg PO QPM 06/26/20 06/26/20 History tetrabenazine 25 mg PO BID 06/26/20 06/26/20 History Past Med/Surg History Medical History (Updated 06/26/20 @ 21:20 by Kamryn Maciel PA-C) Choreiform movements HLD (hyperlipidemia) Stroke-like symptoms Surgical History H/O colonoscopy Family History Mother Lung cancer Son Dyslipidemia Social History Smoking Status: Never smoker Hx Alcohol Use: Yes Alcohol type: wine Alcohol Intake Frequency: 4 or More x per/Week Hx Substance Use: No Feels Safe at Home: Yes Review of Systems Review of Systems: All systems reviewed & are unremarkable except as noted in HPI & below Physical Exam Physical Exam: General: no distress, WDWN Head: normocephalic, atraumatic Eyes: PERRL, EOM's intact, conjunctiva non-injected, anicteric ENT: normal inspection external ears, nose, mucous membranes moist; no tongue laceration Neck: supple, trachea midline, non-tender, ROM intact Lungs: clear, no respiratory distress, no wheezing/rhonchi/rales CV: RRR, +systolic murmur, no pretibial edema Abd: normal BS, soft, non-tender Ext: no cyanosis, no calf tenderness; Left forearm/hand in splint, sensation to light touch intact of visible fingers; remaining extremities with ROM intact, non-tender Neuro: A&O x 3, no focal deficits noted, normal affect Skin: warm, dry Results & Data Results & Data ([facility]) Vital Signs (Past 12 Hours) Vital Signs Temp Pulse Pulse Resp BP BP Pulse Ox 06/26/20 19:49 79 20 134/79 98 06/26/20 18:06 96 06/26/20 18:05 70 20 138/81 96 06/26/20 17:11 36.9 C 74 18 147/78 H 94 Laboratory Results Short CBC 06/26/20 Range/Units 17:43 WBC 12.49 H (4.8-10.8) K/uL Hgb 14.7 (12.0-16.0) g/dL Hct 42.1 (37-47) % Plt Count 194 (130-400) K/uL BMP 06/26/20 17:43 Sodium 142 Potassium 3.5 Chloride 109 H Carbon Dioxide 23 BUN 24 H Creatinine 1.13 Glucose 113 H Calcium 9.0 Cardiac Enzymes 06/26/20 Range/Units 17:43 Troponin I < 0.015 (0-0.045) ng/ml Liver Function 06/26/20 Range/Units 17:43 Total Bilirubin 0.4 (0.2-1) mg/dl AST 20 (15-37) U/L ALT 29 (12-78) U/L Alkaline Phosphatase 51 (45-117) U/L Albumin 3.9 (3.4-5.0) gm/dl Urine 06/26/20 Range/Units 20:26 Urine Color Yellow Urine Appearance Clear (Clear) Urine pH 5.0 (4.5-7.5) Ur Specific [place] 1.015 (1.000-1.030) Urine Protein Negative (Negative) Urine Glucose (UA) Negative (Negative) Diagnostic Findings CT HEAD: IMPRESSION: There is no hemorrhage, mass effect, or evidence of acute territorial ischemia by CT criteria. CT C-SPINE: IMPRESSION: There is no evidence of fracture or subluxation involving the cervical spine. CXR: IMPRESSION: No active disease in the chest. LEFT WRIST XRAY: IMPRESSION: Impacted fracture of the distal radial metaphysis as above. Code Status & VTE Plan VTE Prophylaxis Plan VTE Prophylaxis will be ordered: Yes Supervising Physician Co-Signing Physician Notes Patient was seen and examined by me, care coordinated with Kamryn Maciel PA-C. Please see her note above for further details. Mrs. Faith is a79 y/o female with chorea (follows with neurologist at [facility]), dyslipidemia, and osteoporosis who presents to ER after unwitnessed fall, now with impacted fracture of the distal radial metaphysis. Pt remembers walking to [employer] to get mail and next thing she remembers is her standing over her while she was lying in the driveway. She does not remember how she fell, however she was found by her who reports that she couldn't have fallen more than a few minutes prior to him finding her. Patient was complaining about hitting back of her head. states that she was awake but seemed a little confused/slow when he found her. He was also surprised to see that patient was not holding male, and will observe her away from the patient. Therefore is concerned that maybe she was moving around before she fell. Pt denies loss control of bowel/bladder. Pt c/o WARD and left wrist pain but was able to get up and walk. She states she was feeling well prior to walking to mailbox and denies any chest pain, redness of breath, dizziness when she went out for the mail. Also denies any fevers, chills. Reports after she takes her tetrabenazine is tired. She takes it around noon and 10pm. states fall was around 3pm today. reports has noticed when pt walks she sometimes veers to the left and this has been occurring for at least a year and has been discussed with neurology. reports that pt does have problems with memory and often forgets things. States pt has been doing really well on the tetrabenazine and hasn't had full chorea like episodes for awhile. Currently patient is laying in bed, in no acute distress. Patient's is at the bedside, providing history. Patient is alert and oriented and answering questions appropriately. Currently she is moving all 4 extremities spontaneously without difficulty. Her left arm is in a splint. Lungs are clear to auscultation bilaterally, without any wheezing rhonchi or crackles. Heart sounds are regular. No murmur noted. Abdomen soft, nontender, nondistended, with bowel sounds present. Skin is warm dry, no rashes or lesions noted. EKG shows normal sinus rhythm may have biatrial enlargement, troponin is negative. We will monitor on telemetry, will obtain echocardiogram, brain MRI, to rule out stroke or any other abnormality. Patient may need EEG and neurology consult. Will obtain d-dimer. Patient likely had episode after taking her chronic medication, and given her underlying condition. However as her fall was unwitnessed, will rule out other causes. UA is pending. Sonia Watson MD
[2020-06-26 21:41] LABS: D Dimer 18040 ug/L FEU (0-500)
[2020-06-26] MEDS ORDERED: OPTIRAY 320 125ml IV ONE (21:56)
[2020-06-26] MEDS ORDERED: SIMVASTATIN 40 MG TAB PO SCH (22:01)
[2020-06-26] MEDS ORDERED: OXYCODONE HCL IR 5 MG TAB (IMMEDIATE RELEASE) PO PRN (22:01)
[2020-06-26] MEDS ORDERED: POLYETHYLENE (MIRALAX) 17 GM PACK PO PRN (22:01)
[2020-06-26] MEDS ORDERED: ONDANSETRON INJ 2 MG/ML 2 ML VIAL IV PRN (22:56)
[2020-06-26] MEDS: ACETAMINOPHEN 500 MG TAB PO SCH (23:29)
[2020-06-27] MEDS: ACETAMINOPHEN 500 MG TAB PO SCH (05:56)
[2020-06-27 06:28] LABS: Basophils # (auto) 0.01 K/uL (0-0.2); Basophils % (auto) 0.1 %; Eosinophils # (auto) 0.04 K/uL (0-0.5); Eosinophils % (auto) 0.5 %; Hematocrit (blood only) 36.9 % (37-47); Hemoglobin 12.7 g/dL (12.0-16.0); Immature Granulocytes # (auto) 0.01 K/uL (0.00-0.02); Immature Granulocytes % (auto) 0.1 %; Lymphocytes # (auto) 1.53 K/uL (1.2-3.4); Lymphocytes % (auto) 18.3 %; Mean Corpuscular Hemoglobin 31.1 pg (25-34); Mean Corpuscular Hgb Conc 34.4 g/dL (32-36); Mean Corpuscular Volume 90.4 fL (80-100); Mean Platelet Volume 9.4 fL (7.4-10.4); Monocytes # (auto) 0.79 K/uL (0.11-0.59); Monocytes % (auto) 9.4 %; Neutrophils # (auto) 5.98 K/uL (1.4-6.5); Neutrophils % (auto) 71.6 %; Platelet Count 183 K/uL (130-400); RDW Coefficient of Variation 12.6 % (11.5-14.5); RDW Standard Deviation 41.4 fL (36.4-46.3); Red Blood Count 4.08 M/uL (4.2-5.4); White Blood Count 8.36 K/uL (4.8-10.8)
--- NOTE | 2020-06-27 06:49 | CT Scan Report ---
CT angio chest PE protocol CT DOSE: 339.09 mGy.cm HISTORY: Chest pain. Dyspnea. R/O PE TECHNIQUE: Multiaxial CT images of the chest were performed following the intravenous administration of contrast to evaluate the pulmonary arteries. Maximal intensity projection images were also obtaine d. A dose lowering technique was utilized adhering to the principles of ALARA. COMPARISON STUDY: 04/15/2019 FINDINGS: There is a normal caliber thoracic aorta with no evidence for dissection. There is no evide nce for pulmonary embolus. No pleural effusions. No pneumothorax. The liver and spleen are unremarkab le. No mediastinal or hilar lymphadenopathy. The central airways are patent. The lungs are clear. IMPRESSION: No evidence for pulmonary embolus. Lungs are clear. Minimal basilar interstitial prominence. ACT 112: Negative or not required by law. The above report was generated using voice recognition software. It may contain grammatical, syntax or spelling errors. Electronically signed by: César Goldman M.D. 06/27/2020 6:48 AM
[2020-06-27 06:57] LABS: BUN Creatinine Ratio 16.9 (10-20); Calcium 7.9 mg/dl (8.5-10.1); Creatinine Clr Calc Pharmacy 46.1 ml/min; Est GFR (African American) 71.4; Est GFR (Non-African American) 61.6; Potassium 3.7 mmol/L (3.5-5.1)
[2020-06-27] MEDS ORDERED: ACETAMINOPHEN 1,000 MG/100 ML VIAL IV PRN (07:28)
[2020-06-27] MEDS ORDERED: HYDROmorphone INJ 0.5 MG/0.5 ML SYR IV PRN (07:29)
--- NOTE | 2020-06-27 08:00 | Magnetic Resonance Report ---
MR brain wo con HISTORY: Mental status change ?syncope TECHNIQUE: Multiplanar multisequence MRI of the brain was performed without the use of contrast. COMPARISON STUDY: 01/20/2017 FINDINGS: There are no areas of restricted diffusion to suggest acute infarction. The midline structu res are intact. The paranasal sinuses are clear. The mastoid air cells are clear. The ventricles and sulci are within normal limits for age. There is no mass, hematoma, midline shift. The major vascular flow-voids at the skull base are well maintained. No findings of significant age-related atrophy and chronic small vessel change. IMPRESSION: No acute intracranial abnormality. Age-related atrophy and chronic small vessel change. No change fro m the prior study ACT 112: Negative or not required by law. The above report was generated using voice recognition software. It may contain grammatical, syntax or spelling errors. Electronically signed by: César Goldman M.D. 06/27/2020 7:23 AM
[2020-06-27] MEDS ORDERED: CALCIUM CARBONATE 1250MG TAB PO SCH (09:00)
[2020-06-27] MEDS ORDERED: MULTIVITAMIN TAB PO SCH (09:00)
[2020-06-27] MEDS ORDERED: [UNRECOGNIZED DRUG - REMARK] PO SCH (11:00)
[2020-06-27] MEDS ORDERED: D5W AND 1/2NSS 1,000 ML IV SCH (11:45)
--- NOTE | 2020-06-27 11:45 | Electrocardiogram Report ---
Test Reason : Blood Pressure : / mmHG Vent. Rate : 072 BPM Atrial Rate : 072 BPM P-R Int : 138 ms QRS Dur : 074 ms QT Int : 374 ms P-R-T Axes : 064 014 064 degrees QTc Int : 409 ms Normal sinus rhythm Biatrial enlargement Abnormal ECG When compared with ECG of 20-JAN-2017 10:25, No significant change was found Confirmed by Abiodun Cortez ([id number]) on 06/27/2020 11:44:39 AM Referred By: REFERRED SELF Confirmed By:Adelso Cortez
--- NOTE | 2020-06-27 13:43 | Hospitalist Progress Note ---
Date of Service June 27, 2020 Assessment & Plan (1) Unwitnessed fall: -Pt is 79 y/o F with PMH chorea, dyslipidemia presented to ER with c/o fall today. Pt states remembers walking to mailbox to get mail and next thing she remembers is her standing over her and she was lying in the driveway. - reports that he was in and out of the house and pt couldn't have fallen more than a few minutes prior to him finding her. He states he found her lying on her back and she was awake but seemed a little confused. Denies loss control of bowel/bladder. Pt c/o WARD and left wrist pain but was able to get up and walk. -In ER pt afebrile, P: 74, R: 18, BP: 147/78, 94% on RA. UA negative. WBC: 12, H/H: 14/42, glucose: 113, no significant electrolyte abnormality, negative Troponin. Imaging significant for LEFT WRIST XRAY: Impacted fracture of the distal radial metaphysis as above. Splint was applied in ER. -CT HEAD: There is no hemorrhage, mass effect, or evidence of acute territorial ischemia by CT criteria. MR Brain without contrast: No acute intracranial abnormality. Age-related atrophy and chronic small vessel change. CT C-SPINE:There is no evidence of fracture or subluxation involving the cervical spine. Chest X ray: No active disease in the chest -because of elevated D-dimer levels on admission, these imaging studies were ordered Chest CTA: No evidence for pulmonary embolus. Lungs are clear. Minimal basilar interstitial prominence. Ultrasound of Lower extremities: pending results -patient follows with neurology at [facility] and tetrabenazine medications are managed by that clinic for history of chorea -no arrhythmia noted on telemetry. ZIO patch can be considered as outpatient when patient sees primary care doctor -upcoming scheduled appointments 07/02/2020 12:00 PM Provider Karine Lindo DO Department [facility] 07/31/2020 9:00 AM Provider Jerson Herrera MD Department Rheumatology [facility] 09/12/2020 8:30 AM Provider Chasity Allen DO Department [facility] -discharge medications sent electronically to [facility] [place] [address] of acetaminophen 325 mg every 6 hours as needed for mild to moderate pain, oxycodone 5 mg every 6 hours as needed for severe pain (16 tablets prescribed) (2) Fracture, radius, distal: -LEFT WRIST XRAY: Impacted fracture of the distal radial metaphysis as above. Splint was applied in ER -discussed with patient and family that she will need to follow up at [facility] on [address], [place] [address] call [phone] to schedule appointment (3) Choreiform movements: -patient follows with neurology at [facility] and tetrabenazine medications are managed by that clinic for history of chorea (4) HLD (hyperlipidemia): -Continue simvastatin DVT Prophylaxis: SCDs for now while in the hospital DNR/DNI Admission and Anticipated Discharge Date Admission Date: June 26, 2020 Subjective Patient has been NPO today while awaiting for formal orthopedic evaluation of the left arm in the splint. She and her are eager to go home. They are agreeable to the ultrasound of the lower extremities because of elevated D-dimer on this admission patient not in acute pain. breathing on room air. no chest pain. no palpitations. no dizziness. no headache. telemetry with sins bradycardia. Review of Systems Review of Systems: All systems reviewed & are unremarkable except as noted in Subjective Physical Exam Eyes: PERRL, conjunctivae normal, anicteric sclerae EOM intact bilaterally ENMT: external ear and nose normal, oropharynx normal Neck: trachea midline, no thyromegaly normal visual inspection Respiratory: normal respiratory effort, lungs clear to auscultation Cardiovascular: Rate/Rhythm: regular rhythm and + bradycardic Gastrointestinal (Abdomen): normal bowel sounds, soft, nontender, no hepatosplenomegaly Musculoskeletal: Head/Neck/Chest: normocephalic and head atraumatic Extremities: + upper extremity abnormal to inspection (left upper extremity in splint) Neurologic: PERRL, EOMI, accommodation nl, no face palsy, no dysarthria Psychiatric: A+Ox3, euthymic affect Results & Data Results & Data ([facility]) Vital Signs (Past 12 Hours) Vital Signs Temp Pulse Resp BP Pulse Ox 06/27/20 11:13 36.4 C L 63 18 133/79 96 06/27/20 07:26 37.0 C 64 18 107/67 96 06/27/20 03:33 36.7 C 71 17 104/60 97
--- NOTE | 2020-06-27 13:53 | Ultrasound Report ---
US venous doppler LE BI CLINICAL HISTORY: elevated D-dimer, rule out DVT CHEST PAIN AND SHORTNESS OF BREATH. POSSIBLE PULMONA RY EMBOLISM. COMPARISON STUDY: No previous studies for comparison. FINDINGS: Real-time and color flow Doppler imaging were performed. Flow was seen within the femoral, popliteal and calf veins with no intraluminal thrombus demonstrated. The saphenous vein is patent. IMPRESSION: No evidence of deep venous thrombosis. ACT 112: Negative or not required by law. Electronically signed by: Nazario Trejo M.D. 06/27/2020 1:51 PM
--- NOTE | 2020-06-27 14:15 | Orthopedic Consultation ---
Date of Consultation June 27, 2020 Assessment & Plan (1) Fracture, radius, distal: Continue splint. Ice to left wrist to help with swelling. Move fingers regularly. Keep the splint C/D/I. Follow up with [facility] in 1 week. History of Present Illness Reason for Consultation: Left Distal Radius Fracture Attending Physician: Edward Rosa MD History of Present Illness 79 yo WF who was admitted for syncopal episode while walking out to the mailbox. Pt was walking to her mailbox and when she came to, she was looking at her who was standing over her trying to help her. She does not remember falling and the fall was not witnessed. Pt was found relatively quickly after the fall and brought to ED. She was found to have a left distal radius fx. This was placed in a sugartong splint. She was admitted for further observation and we have been asked to see her for her radius fx. Currently, she is awake,alert, without complaints. She states the wrist is mildly sore at times. Allergies Allergy/AdvReac Type Severity Reaction Status Date / Time No Known Allergies Allergy Unverified 01/20/17 11:17 Home Medications Home Medications Medication Instructions Recorded Confirmed Type calcium carbonate [Calcium 500] 500 mg PO DAILY 06/26/20 06/26/20 History multivitamin 1 tab PO DAILY 06/26/20 06/26/20 History simvastatin 40 mg PO QPM 06/26/20 06/26/20 History tetrabenazine 25 mg PO BID 06/26/20 06/26/20 History acetaminophen 325 mg PO Q6H PRN 5 Days #20 tab 06/27/20 Rx oxycodone 5 mg PO Q6H PRN 4 Days #16 tab 06/27/20 Rx Patient History Medical History Choreiform movements HLD (hyperlipidemia) Stroke-like symptoms Surgical History H/O colonoscopy Family History Mother Lung cancer Son Dyslipidemia Social History Smoking Status: Former smoker Second Hand Exposure: No; Do You Dip or Chew Tobacco: No; Hx Alcohol Use: Yes Alcohol type: wine Alcohol Intake Frequency: 4 or More x per/Week Hx Substance Use: No Preferred Language: Syriac Communication Ability: Effective Design Chief Required: No Beliefs That Will Affect Care: None Current Living Situation: Spouse Other Information That Helps Us Care for You: No Feels Safe at Home: Yes Safety Concerns: Feels Safe At This Time Physical Exam Physical Exam: WD, WN,WF, NAD, Pleasant, cooperative, A/O x 3 Left wrist in sugar tong splint. Fingers are pink and warm with good cap refill. Sensation is intact. Limited movement due to splint with her fingers but she is able to move fingers 2-5 to some degree. Good ROM of the thumb. Sensation intact. Cap refill <2 seconds. Denies pain in the elbow. H/O shoulder arthritis. Results & Data ([facility]) Vital Signs (Past 12 Hours) Vital Signs Temp Pulse Resp BP Pulse Ox 06/27/20 11:13 36.4 C L 63 18 133/79 96 06/27/20 07:26 37.0 C 64 18 107/67 96 06/27/20 03:33 36.7 C 71 17 104/60 97 Diagnostic Findings Patient: DEE GRIFFITHAdmit Date: 06/26/20 MR#: [id number]: [address] [place] [address] Acct ID:[id number]: Date: 1940[facility] Zip: [place] [address] Age: 79Location: ED Sex: F Room/Bed: Att Phy:Diagnosis: FALL Amie Phy: Chasity Allen DOService Date: 06/26/20 [facility] Phy:Interpreting Phy: Rickie Rajput MD Admit Phy: Ordering Phy: Akash Lindsey MD cc: ~ LEFT WRIST 4 VIEWS CLINICAL HISTORY: Fall with left wrist injury. FINDINGS: 4 views of the left wrist are obtained. No prior studies are available for comparison at the time of dictation. The skeletal structures are osteopenic. There is an impacted fracture of the distal radial metaphysis with intra- articular extension and minimal apex volar angulation. Overlying soft tissue edema is noted. The distal ulna is intact. The radiocarpal articulation is preserved. Minimal osteoarthritic change is noted at the first carpometacarpal joint. IMPRESSION: Impacted fracture of the distal radial metaphysis as above.
--- NOTE | 2020-06-27 14:42 | Discharge Summary ---
Date of Service June 27, 2020 Admission HPI Per Admitting Provider Pt is 79 y/o F with PMH chorea, dyslipidemia presented to ER with c/o fall today. Pt states remembers walking to mailbox to get mail and next thing she remembers is her standing over her and she was lying in the driveway. reports that he was in and out of the house and pt couldn't have fallen more than a few minutes prior to him finding her. He states he found her lying on her back and she was awake but seemed a little confused. Denies loss control of bowel/bladder. Pt c/o WARD and left wrist pain but was able to get up and walk. She states she was feeling fine prior to walking to mailbox and denies any CP, SOB, dizziness when she went out for the mail. Reports after she takes her tetrabenazine is tired. She takes it around noon and 10pm. states fall was around 3pm today. Denies recent falls. Walks 2 miles a day and does PT exercises at home 3 times a week. reports has noticed when pt walks she sometimes veers to the left and this has been occurring for at least a year and has been discussed with neurology. reports that pt does have problems with memory and often forgets things. States pt has been doing really well on the tetrabenazine and hasn't had full chorea like episodes for awhile. Denies fever/chills, diaphoresis, N/V/D/C, WARD, dizziness, vision changes, neck pain, back pain, CP, SOB, orthopnea, palpitations, cough, sore throat, choking, otalgia, rhinorrhea, abdominal pain, paresthesias, extremity weakness, extremity edema, rashes, urinary symptoms. Principal Diagnosis Unwitnessed fall Fracture, radius, distal History of Chorea/Choreiform movements: Elevated D-dimer Discharge Exam Eyes PERRL, conjunctivae normal, anicteric sclerae EOM intact bilaterally ENMT external ear and nose normal, oropharynx normal Neck trachea midline, no thyromegaly normal visual inspection Respiratory normal respiratory effort, lungs clear to auscultation Cardiovascular Rate/Rhythm: regular rhythm and + bradycardic Gastrointestinal (Abdomen) normal bowel sounds, soft, nontender, no hepatosplenomegaly Musculoskeletal Head/Neck/Chest: normocephalic and head atraumatic Extremities: + upper extremity abnormal to inspection (left upper extremity in splint) Neurologic PERRL, EOMI, accommodation nl, no face palsy, no dysarthria Psychiatric A+Ox3, euthymic affect Discharge Data Allergies Allergy/AdvReac Type Severity Reaction Status Date / Time No Known Allergies Allergy Unverified 01/20/17 11:17 Consultations 06/26/20 19:49 ED Decision to Admit Stat 06/27/20 08:00 Consult Orthopedic Surgery Routine Ordered Studies 06/26/20 17:31 CT cervical spine wo con Stat CT head/brain wo con Stat 06/26/20 20:30 MR brain wo con Routine 06/26/20 21:46 CT angio chest PE protocol Urgent 06/27/20 13:30 US venous doppler LE Routine Hospital Course (1) Unwitnessed fall: -Pt is 79 y/o F with PMH chorea, dyslipidemia presented to ER with c/o fall today. Pt states remembers walking to mailbox to get mail and next thing she remembers is her standing over her and she was lying in the driveway. - reports that he was in and out of the house and pt couldn't have fallen more than a few minutes prior to him finding her. He states he found her lying on her back and she was awake but seemed a little confused. Denies loss control of bowel/bladder. Pt c/o WARD and left wrist pain but was able to get up and walk. -In ER pt afebrile, P: 74, R: 18, BP: 147/78, 94% on RA. UA negative. WBC: 12, H/H: 14/42, glucose: 113, no significant electrolyte abnormality, negative Troponin. Imaging significant for LEFT WRIST XRAY: Impacted fracture of the distal radial metaphysis as above. Splint was applied in ER. CT HEAD: There is no hemorrhage, mass effect, or evidence of acute territorial ischemia by CT criteria. MR Brain without contrast: No acute intracranial abnormality. Age-related atrophy and chronic small vessel change. CT C-SPINE:There is no evidence of fracture or subluxation involving the cervical spine. Chest X ray: No active disease in the chest because of elevated D-dimer levels on admission, these imaging studies were ordered Chest CTA: No evidence for pulmonary embolus. Lungs are clear. Minimal basilar interstitial prominence. Ultrasound of bilateral lower extremities: no deep vein thrombosis of bilateral lower extremities patient follows with neurology at [facility] and tetrabenazine medications are managed by that clinic for history of chorea no arrhythmia noted on telemetry. ZIO patch can be considered as outpatient when patient sees primary care doctor upcoming scheduled appointments 07/02/2020 12:00 PM Provider Karine Lindo, DO Department [facility] follow up at [facility] on [address] [place] [address] (call [phone]). appointment scheduled for 07/10/2020 at 8:[address] Cheng 07/31/2020 9:00 AM Provider Jerson Herrera MD Department Rheumatology [facility] [place] 09/12/2020 8:30 AM Provider Chasity Allen DO [facility] discharge medications sent electronically to [facility] [place] [address] of acetaminophen 325 mg every 6 hours as needed for mild to moderate pain, oxycodone 5 mg every 6 hours as needed for severe pain (16 tablets prescribed) (2) Fracture, radius, distal: -LEFT WRIST XRAY: Impacted fracture of the distal radial metaphysis as above. Splint was applied in ER -evaluated by orthopedic service -follow up at [facility] on [address] [place] [id number] (call [phone]). appointment scheduled for 07/10/2020 at 8:[address] Cheng (3) Choreiform movements: -patient follows with neurology at [facility] and tetrabenazine medications are managed by that clinic for history of chorea (4) HLD (hyperlipidemia): -Continue simvastatin DNR/DNI Total Time Total Time Spent Total Time Spent (In Minutes): 40 minutes Total Time Includes: Examination of the Patient, Discharge Planning, Medication Reconciliation and Communication With Other Providers Discharge Plan Discharge Items Patient Disposition: Home - Self-Care Reason For Visit: UNWITNESSED FALL Discharge Diagnosis: Unwitnessed fall Fracture, radius, distal History of Chorea/Choreiform movements: Elevated D-dimer Condition on Discharge: Good Activity: Per Instructions section Non-emergency contact: Primary Care Provider and Surgeon Call non-emergency contact if: you have any medication questions Follow-up/Referrals: Chasity Allen DO [Primary Care Provider] - Diet: Regular Addtl Attending Provider Instructions: Imaging significant for LEFT WRIST X RAY: Impacted fracture of the distal radial metaphysis as above. Splint was applied in ER CT HEAD: There is no hemorrhage, mass effect, or evidence of acute territorial ischemia by CT criteria. MR Brain without contrast: No acute intracranial abnormality. Age-related atrophy and chronic small vessel change. CT C-SPINE:There is no evidence of fracture or subluxation involving the cervical spine. Chest X ray: No active disease in the chest because of elevated D-dimer levels on admission, these imaging studies were ordered Chest CTA: No evidence for pulmonary embolus. Lungs are clear. Minimal basilar interstitial prominence. Ultrasound of bilateral lower extremities: no deep vein thrombosis of bilateral lower extremities patient follows with neurology at [facility] and tetrabenazine medications are managed by that clinic for history of chorea no arrhythmia noted on telemetry. ZIO patch can be considered as outpatient when patient sees primary care doctor upcoming scheduled appointments 07/02/2020 12:00 PM Provider Karine Lindo DO Department [facility] follow up at [facility] on [address] [place] [id number] (call [phone]). appointment scheduled for 07/10/2020 at 8:[address] Cheng 07/31/2020 9:00 AM Provider Jerson Herrera MD Department Rheumatology [facility] [place] 09/12/2020 8:30 AM Provider Chasity Allen DO Department [facility] discharge medications sent electronically to [facility] [place] [address] of acetaminophen 325 mg every 6 hours as needed for mild to moderate pain, oxycodone 5 mg every 6 hours as needed for severe pain (16 tablets prescribed) Addtl Gluing Machine Operator Electronic Provider Instructions: LEFT WRIST X RAY: Impacted fracture of the distal radial metaphysis as above. Splint was applied in ER follow up at [facility] [place] on [address] [place] [address] (call [phone]). appointment scheduled for 07/10/2020 at 8:[address] Cheng Orthopedic ACTIVITY RECOMMENDATIONS: * Avoid lifting with the left arm/wrist SPECIAL CARE INSTRUCTIONS: * Your bandage should be left in place. * If the bandage feels excessively tight, you may loosen the elastic bandage. Then call the physician's office for further instructions. * If possible, keep your hand elevated above the level of your heart for the first 2 post operative days. You may use a sling if necessary. * You should move your fingers regularly (50-100 motions per hour) unless otherwise instructed. Pending Studies at Discharge: No Stand-Alone Forms: My [facility] [employer], Smoking Cessation Medications and DC Order Prescriptions: New acetaminophen 325 mg tablet 325 mg PO Q6H PRN (Reason: mild to moderate pain) 5 Days Qty: 20 RF: 0 oxycodone 5 mg tablet 5 mg PO Q6H PRN (Reason: severe pain) 4 Days Qty: 16 RF: 0 Continued multivitamin Tablet 1 tab PO DAILY RF: 0 simvastatin 40 mg Tablet 40 mg PO QPM RF: 0 calcium carbonate [Calcium 500] 500 mg calcium (1,250 mg) Tablet,Chewable 500 mg PO DAILY RF: 0 tetrabenazine 25 mg Tablet 25 mg PO BID RF: 0 Discharge Orders: Discharge Order (Routine); Ordered 06/27/20 Ordered By: Edward Rosa Admission Data Admit Date/Time: 06/26/20 20:38 Attending Provider: Edward Rosa Admit Provider: Edward Watson Primary Care Provider: Chasity Allen Other Providers: Samson Manuel ; Elian Gamez ; Edward Watson
--- NOTE | 2020-07-04 11:17 | Coding Query ---
A supporting diagnosis is required for the test/procedure performed on this patient in order for us to be reimbursed by the patient's insurance. Please provide a supporting diagnosis for the following test/procedure listed below next to the test name along with your signature. *If there is no additional diagnosis for this patient that would support the following test/procedure please document that below next to the test/procedure. Test(s)/Procedure(s) that require a supporting diagnosis: * 51362 VENOUS DOPPLER LOWER EXT BILAT DIAGNOSIS: elevated D-dimer. rule out DVT DATE OF SERVICE: 06/27/20 Provider Signature: Edward Rosa Date: _07/11/2020 Thank you Kalpesh Hatch [facility] Information Management Once completed, please kindly fax back to [phone] For questions please call [phone] LUCIA
== END 2020-06-27 15:48 | disposition home or self-care (01) ==
LOC: ED 17:08 → 2N 17:08 → SUATTDRO 20:38 → 2N 21:45